=== PATIENT | female | born 2000 | race Caucasian/White ===

== ENCOUNTER 2024-03-13 07:32 | Inpatient (IN) ==
--- OUTSIDE RECORDS SUMMARY | 2024-03-13 08:23 | External Medical Summary | Summary of Care ---
Author Name Unknown Organization [facility] Address [address] [facility] [place] [address] Phone [phone] Care Team Providers Care Cctv Technician Name Role Phone Mile Montague MD Primary Care Provider [phone] Reason for Visit * Reason Comments Return Visit Encounter Details Date Type Department Care Team (Late st Contact Info) Description 02/24/2024 7:45 AM EDT Office Visit Gynecology/Obstetric s [facility] [address] [place] [address] Karla Samayoa PA-C [address] [place] [address] Supervision of normal first , antepartum*; Obesity affecting , antepartum, unspecified obesity type Allergies Active Allergy Reactions Criticality Noted Date Comments Wound Dressing Adhesive 01/06/2024 KT tape- burning/itching documented as of this encounter (statuses as of 02/24/2024) Medications Medication Sig Dispensed Refills Start Date End Date Status 27-0.8 MG Oral Tablet Take 1 Tablet by mouth daily at noon. Active documented as of this encounter (statuses as of 02/24/2024) Active Problems Problem Noted Date Diagnosed Date Migraines 09/09/2023 Supervision of normal first , antepartu m 08/12/2023 Obesity affecting 08/12/2023 Overview: Class 1 PCOS (polycystic ovarian syndrome) 08/12/2023 Overview: Early glucola Estimated Date of Delivery Comme nts Yes 03/10/2024 Based on last me nstrual period of 06/04/2023 documented as of this encounter (statuses as of 02/24/2024) Resolved Problems Problem Noted Date Diagnosed Date Resolved Date NO KNOWN PROBLEMS 08/31/2013 09/09/2023 documented as of this encounter (statuses as of 02/24/2024) Immunizations Name Administration Dates Next Due COVID-19 mRNA, LNP-s, No Pre serve, 2-Dose Series (Pfizer) 06/03/2021,05/13/2021 DTaP Dipth/Tet/Acell Pertussis (Infanrix), Peds 09/25/2003,08/31/2000,1999,09/28,1999 HIB Hep B - HIB Hepatitis B (Comvax) 1999, 1999 HIB PRP-T, 4 Dose, PF, IM (Hiberix) 08/31/2000,0 02/20/2000 HPV Vaccine, 4-Valent 09/12/2012,12/28/2011,03/23 Hepatitis B, 0-19 yrs 02/29/2000 IPV - Polio Virus Vaccine (Inact) 2003,05/30/2000,1999,07/22 MMR - Measles/Mumps/Rubella Vaccine 09/25/2003,1 Meningococcal Conjugate Vacc ine (Menactra/Menveo) 10/28/2010 Pneumococcal Conjugate Vacci ne, 7 Valent 11/29/2000,08/31/2000 Seasonal Influenza Intranasal 09/12/2012 Seasonal Influenza Vac, Quad , Cell Cult, PF, 6 Mos and Up, IM, (Flucelvax Quad) 11/04/2023,06/11/2022 Seasonal Influenza, Quadriva lent, No Preserve, IM 06/09/2021 TDAP (age 10 and older)(Boostrix) 12/23/2023 TDAP, Age 7 and older, IM (Adacel) 10/28/2010 Varicella Vaccine (Chicken Pox) 05/11/2006,05/30 documented as of this encounter Social History Tobacco Use Types Packs/Day Years Used Date Smoking Tobacco: Never Smokeless Tobacco: Never Alcohol Use Standard Drinks/Week Comments No 0 (1 standard drink = 0.6 oz pur e alcohol) PHQ-2 Answer Date Recorded PHQ Adult Total Score 0 12/09/2023 Hunger Vital Sign Answer Date Recorded Within the past 12 months, y ou worried that your food would run out before you got the money to buy more. Never true 10/14/19 24 Within the past 12 months, t he food you bought just didn't last and you didn't have money to get more. Never true 10/14/2023 [place] Depression Scale Answer Date Recorded [place] Depression Scale Total 1 02/17/2024 The thought of harming myself has occurred to me . Never 02/17/2024 Childcare Answer Date Recorded Do you feel overwhelmed with taking care of a child, family member or friend? No 10/14/2023 Does your family need help f inding childcare? (Household - for ages 0-17 years) Not on file 10/14/2023 Clothing Answer Date Recorded Have you been unable to get clothing when it was really needed? No 10/14/2023 Is your family able to get c lothes or diapers when needed? (Household - for ages 0-17 years) Not on file 10/14/2023 Personal Safety Answer Date Recorded Do you feel unsafe or have concerns for your saf ety? No 10/14/2023 Do you have concerns for you r family's safety? (Household - for ages 0-17 years) Not on file 10/14/2023 Utilities Answer Date Recorded Do you have trouble paying y our heating, water, or electric bill? No 10/14/2023 Is your family able to pay t he heat, water, or electric bill? (Household - for ages 0-17 years) Not on file 10/14/2023 Does your family have access to good internet? (Household - for ages 0-17 years) Not on file 10/14/2023 Employment Status Answer Date Recorded Are you unemployed or without regular income? No 10/14/2023 Does the household have a re gular source of income? (Household - for ages 0-17 years) Not on file 10/14/2023 Social Connections Answer Date Recorded How often do you feel lonely or isolated from th ose around you? Never 10/14/2023 Financial Resource Strain Answer Date R ecorded Do you have any trouble payi ng for your medications, or do you think you might in the future? No 10/14/2023 Does your family have troubl e paying for medicine? (Household - for ages 0-17 years) Not on file 10/14/2023 Transportation Needs Answer Date Record ed READ ONLY Do you have troubl e getting a ride to medical visits or work? Never True 10/14/2023 Does your family have a hard time getting a ride to doctors visits? (Household - for ages 0-17 years) Not on file 10/14/2023 Has lack of transportation k ept you from medical appointments, meetings, work, or from getting things needed for daily living? Check all that apply. (Adult - for ages 18 years and over) Not on file 10/14/2023 Do you (or your family) have trouble finding or paying for a ride (transportation)? (Household - for ages 0-17 years) Not on file 10/14/2023 Housing Stability Answer Date Recorded Do you currently live in a s helter or have no steady place to sleep at night? No 10/14/2023 READ ONLY Do you think you a re at risk of becoming homeless? No 10/14/2023 Does your family worry about paying for your home or becoming homeless? (Household - for ages 0-17 years) Not on file 0 10/14/2023 Are you homeless or worried that you might be in the future? (Adult - for ages 18 years and over) Not on file Are you (or your family) eli eless or worried that you might be in the future? (Household - for ages 0-17 years) Not on file Food Insecurity Answer Date Recorded Do you need food for this week? No 10/14/2023 Are you able to get enough f ood for your family? (Household - for ages 0-17 years) Not on file 10/14/2023 Does your family need food t his week? (Household - for ages 0-17 years) Not on file 10/14/2023 Do you always have enough fo od for your family? (Household - for ages 0-17 years) Not on file 10/14/2023 Estimated Date of Delivery Comme nts Yes 03/10/2024 Based on last me nstrual period of 06/04/2023 Sex and Gender Information Value Date Recorded Sex Assigned at Female 03/25/2023 10:55 PM EDT Gender Identity Female 03/25/2023 10:55 PM EDT Sexual Orientation Straight 03/25/2023 10 :55 PM EDT Job Start Date Occupation Industry Not on file Not on file Not on file documented as of this encounter Last Filed Vital Signs Vital Sign Reading Time Taken Comments Blood Pressure 122/78 02/24/2024 7:38 AM EDT Pulse - - Temperature - - Respiratory Rate - - Oxygen Saturation - - Inhaled Oxygen Concentration - - Weight 104.8 kg (231 lb) 02/24/2024 7:38 AM EDT Height - - Body Mass Index 40.92 02/17/2024 8:51 AM EDT documented in this encounter Progress Notes * Karla Samayoa PA-C - 02/24/2024 7:39 AM EDT 37w6d Doing well, denies LOF, VB, contractions. Baby is active. Would like to schedule postdate IOL. Mother in law is leaving for [place] on March 18, will be gone for 18 months. Hoping to be induced before then. Labor precautions. RTC in 1 week documented in this encounter Plan of Treatment Upcoming Encounters Date Type Department Care Team (Late st Contact Info) Description 03/02/2024 7:45 AM EDT Office Visit Gynecology/Obstetrics [facility] [address] [place] [address] Karla Samayoa PA-C [address] [place] [address] 03/09/2024 7:45 AM EDT Office Visit Gynecology/Obstetrics [facility] [address] [place] [address] Karla Samayoa PA-C [address] [place] [address] 12/31/2024 8:00 AM EDT Office Visit Family [facility] [address] [place] [address] Mile Montague MD [address] [place] [address] Health Maintenance Due Date Last Done Comments Pap Smear 2020 COVID-19 Vaccine ( season) 2023 06/03/2021, 05/13/2021 Influenza Vaccine (FLU shot) (#1) 2024 11/04/2023, 06/11/2022, 06/09/2021, Additional history exists Gonorrhea / Chlamydia Screen 08/12/2024 08/12/2023 Depression Screening 12/08/2024 12/09/2023 DTaP,Tdap,and Td Vaccines (8 - Td or Tdap) 12/22/2033 12/23/2023, 10/28/2010, 09/25/2003, Additional history exists Hepatitis B Vaccine Completed 02/29/2000, 1999, 1999 MENINGOCOCCAL (MENACTRA/MENVEO) Aged Out 10/28/2010 No longer eligible based on patient's age to complete this topic HPV (Gardasil) Vaccine Completed 3, 12/28/2011, 04/14/2011 Pneumococcal Vaccine: Pediatrics (0 to 5 Years) and At-Risk Patients (6 to 64 Years) Aged Out No longer eligible based on patient's age to complete this topic documented as of this encounter Medical Devices Not on filedocumented as of this encounter Visit Diagnoses Diagnosis Supervision of normal first , antepartum- Primary Obesity affecting , antepartum, unspecified obesity type documented in this encounter Care Teams Cctv Technician Relationship Specialty Start Date End Date Mile Montague MD [address] [place] [address] PCP - General Family Medicine 12/30/23 documented as of this encounter
--- OUTSIDE RECORDS SUMMARY | 2024-03-13 08:23 | External Medical Summary | Summary of Care ---
Author Name Unknown Organization [facility] Address [address] [facility] [place] [address] Phone [phone] Care Team Providers Care Eye Care Professional Name Role Phone Mile Montague MD Primary Care Provider [phone] Reason for Visit * Reason Comments Return Visit Encounter Details Date Type Department Care Team (Late st Contact Info) Description 02/24/2024 7:45 AM EDT Office Visit Gynecology/Obstetric s [facility] Chang [address] [place] [address] Karla Samayoa PA-C [address] [place] [address] Supervision of normal first , antepartum*; Obesity [...] money to get more. Never true 10/14/2023 [place] Depression Scale Answer Date Recorded [place] Depression Scale Total 1 02/17/2024 The thought [...] 03/02/2024 7:45 AM EDT Office Visit Gynecology/Obstetrics [facility] [address] [place] [address] Karla Samayoa PA-C [address] [place] [address] 03/09/2024 7:45 AM EDT Office Visit Gynecology/Obstetrics [facility] [address] [place] [address] Karla Samayoa PA-C [address] [place] [address] 12/31/2024 8:00 AM EDT Office Visit [facility] [address] [place] [address] Mile Montague MD [address] [place] [address] Health Maintenance Due Date Last Done Comments [...] type documented in this encounter Care Teams Eye Care Professional Relationship Specialty Start Date End Date Mile Montague MD [address] [place] [address] PCP - General Family Medicine 12/30/23 documented as of this encounter
--- OUTSIDE RECORDS SUMMARY | 2024-03-13 08:23 | External Medical Summary | Summary of Care ---
Author Name Unknown Organization [facility] Address [address] [facility] [place] [address] Phone [phone] Care Team Providers Care Grain Operator Name Role Phone Mile Montague MD Primary Care Provider [phone] Reason for Visit * Reason Comments Return Visit Encounter Details Date Type Department Care Team (Late st Contact Info) Description 03/09/2024 7:45 AM EDT Office Visit Gynecology/Obstetric s Sharda Chang [address] [place] [address] Karla Samayoa PA-C [address] [place] [address] Supervision of normal first , antepartum*; Obesity affecting in third trimester, unspecified obesity type Allergies Active Allergy Reactions Criticality Noted Date Comments Wound Dressing Adhesive 01/06/2024 KT tape- burning/itching documented as of this encounter (statuses as of 03/09/2024) Medications Medication Sig Dispensed Refills Start Date End Date Status 27-0.8 MG Oral Tablet Take 1 Tablet by mouth daily at noon. Active documented as of this encounter (statuses as of 03/09/2024) Active Problems Problem Noted Date Diagnosed Date Migraines 09/09/2023 Supervision of normal first , antepartu m 08/12/2023 Obesity affecting 08/12/2023 Overview: Class 1 PCOS (polycystic ovarian syndrome) 08/12/2023 Overview: Early glucola Estimated Date of Delivery Comme nts Yes 03/10/2024 Based on last me nstrual period of 06/04/2023 documented as of this encounter (statuses as of 03/09/2024) Resolved Problems Problem Noted Date Diagnosed Date Resolved Date NO KNOWN PROBLEMS 08/31/2013 09/09/2023 documented as of this encounter (statuses as of 03/09/2024) Immunizations Name Administration Dates Next Due COVID-19 mRNA, LNP-s, No Pre serve, 2-Dose Series (Pfizer) 06/03/2021,05/13/2021 DTaP Dipth/Tet/Acell Pertussis (Infanrix), Peds 09/25/2003,08/31/2000,1999,09/28,1999 HIB Hep B - HIB Hepatitis B (Comvax) 1999, 1999 HIB PRP-T, 4 Dose, PF, IM (H iberix, ActHib) 08/31/2000,02/20/2000 HPV Vaccine, 4-Valent 09/12/2012,12/28/2011,03/23 Hepatitis B, 0-19 [...] money to get more. Never true 10/14/2023 [place] Depression Scale Answer Date Recorded [place] Depression Scale Total 1 02/17/2024 The thought [...] Reading Time Taken Comments Blood Pressure 122/78 03/09/2024 7:41 AM EDT Pulse - - Temperature - - Respiratory Rate - - Oxygen Saturation - - Inhaled Oxygen Concentration - - Weight 104.8 kg (231 lb) 03/09/2024 7:41 AM EDT Height 160 cm (5' 3") 03/09/2024 7:41 AM EDT Body Mass Index 40.92 03/09/2024 7:41 AM EDT documented in this encounter Progress Notes * Karla Samayoa PA-C - 03/09/2024 8:24 AM EDT 39w6d Denies concerns. Would like cervical check. No VB, LOF, contractions. Baby is active. IOL scheduled 03/13/2024. Dial Polisher Documentation Provider requested executive pastry chef. Name of executive pastry chef: ALEXUS Crow RTC for visits Karla Samayoa PA-C * Aretha Lara LPN - 03/09/2024 7:41 AM EDT 39w6d Would like cervix checked documented in this encounter Plan of Treatment Upcoming Encounters Date Type Department Care Team (Late st Contact Info) Description 12/31/2024 8:00 AM EDT Office Visit Family Practice [facility] [place] [address] [place] [address] Mile Montague MD [address] [place] [address] Health Maintenance Due Date Last Done Comments Pap Smear 2020 COVID-19 Vaccine (3 - 2022- season) 2023 06/03/2021, 05/13/2021 Influenza Vaccine (FLU [...] normal first , antepartum- Primary Obesity affecting in third trimester, unspecified obesity type documented in this encounter Care Teams Grain Operator Relationship Specialty Start Date End Date Mile Montague MD [address] [place] [address] PCP - General Family Medicine 12/30/23 documented as of this encounter
--- OUTSIDE RECORDS SUMMARY | 2024-03-13 08:23 | External Medical Summary | Summary of Care ---
Author Name Unknown Organization [facility] Address [address] [facility] [place] [address] Phone [phone] Care Team Providers Care Buncher Machine Name Role Phone Mile Montague MD Primary Care Provider [phone] Reason for Visit * Reason Onset Date Comments Forms Request 02/21/2024 Encounter Details Date Type Department Care Team (Late st Contact Info) Description 02/21/2024 Telephone Gynecology/Obstetrics [facility] [address] [place] [address] Karla Samayoa PA-C [address] [place] [address] Forms Request Allergies Active Allergy Reactions Criticality Noted Date Comments Wound Dressing Adhesive 01/06/2024 KT tape- burning/itching documented as of this encounter (statuses as of 02/22/2024) Medications Medication Sig Dispensed Refills Start Date End Date Status 27-0.8 MG Oral Tablet Take 1 Tablet by mouth daily at noon. Active documented as of this encounter (statuses as of 02/22/2024) Active Problems Problem Noted Date Diagnosed Date Migraines 09/09/2023 Supervision of normal first , antepartu m 08/12/2023 Obesity affecting 08/12/2023 Overview: Class 1 PCOS (polycystic ovarian syndrome) 08/12/2023 Overview: Early glucola Estimated Date of Delivery Comme nts Yes 03/10/2024 Based on last me nstrual period of 06/04/2023 documented as of this encounter (statuses as of 02/22/2024) Resolved Problems Problem Noted Date Diagnosed Date Resolved Date NO KNOWN PROBLEMS 08/31/2013 09/09/2023 documented as of this encounter (statuses as of 02/22/2024) Immunizations Name Administration Dates Next Due COVID-19 [...] money to get more. Never true 10/14/2023 [place] Depression Scale Answer Date Recorded [place] Depression Scale Total 1 02/17/2024 The thought [...] on file documented as of this encounter Miscellaneous Notes * Telephone Encounter - Karla Samayoa PA-C - 02/22/2024 5:13 PM EDT Signed and placed back in triage to be faxed. * Telephone Encounter - Ebonie Jones LPN - 02/21/2024 8:54 AM EDT On Karla's desk for signature. * Telephone Encounter - Ebonie Jones LPN - 02/21/2024 8:40 AM EDT FMLA paperwork received. documented in this encounter Plan of Treatment Upcoming Encounters Date Type Department Care Team (Late st Contact Info) Description 02/24/2024 7:45 AM EDT Office Visit Gynecology/Obstetrics [facility] [address] [place] [address] Karla Samayoa PA-C [address] [place] [address] 03/02/2024 7:45 AM EDT Office Visit Gynecology/Obstetrics [facility] [address] [place] [address] Karla Samayoa PA-C [address] [place] [address] 03/09/2024 7:45 AM EDT Office Visit Gynecology/Obstetrics [facility] [address] [place] [address] Karla Samayoa PA-C [address] [place] [address] 12/31/2024 8:00 AM EDT Office Visit [facility] [employer] [address] [facility] [place] [address] Mile Montague MD [address] [facility] [place] [address] Health Maintenance Due Date Last Done Comments [...] Not on filedocumented as of this encounter Care Teams Buncher Machine Relationship Specialty Start Date End Date Mile Montague MD [address] [place] [address] PCP - General Family Medicine 12/30/23 documented as of this encounter
--- OUTSIDE RECORDS SUMMARY | 2024-03-13 08:23 | External Medical Summary | Summary of Care ---
Author Name Unknown Organization [facility] Address [address] [facility] [place] [address] Phone [phone] Care Team Providers Care Executive Director Name Role Phone Mile Montague MD Primary Care Provider [phone] Reason for Visit * Reason Comments Return Visit Encounter Details Date Type Department Care Team (Late st Contact Info) Description 03/02/2024 7:45 AM EDT Office Visit Gynecology/Obstetric s [facility] [address] [place] [address] Karla Samayoa PA-C [address] [place] [address] Supervision of normal first , antepartum*; Obesity affecting in third trimester, unspecified obesity type Allergies Active Allergy Reactions Criticality Noted Date Comments Wound Dressing Adhesive 01/06/2024 KT tape- burning/itching documented as of this encounter (statuses as of 03/02/2024) Medications Medication Sig Dispensed Refills Start Date End Date Status 27-0.8 MG Oral Tablet Take 1 Tablet by mouth daily at noon. Active documented as of this encounter (statuses as of 03/02/2024) Active Problems Problem Noted Date Diagnosed Date Migraines 09/09/2023 Supervision of normal first , antepartu m 08/12/2023 Obesity affecting 08/12/2023 Overview: Class 1 PCOS (polycystic ovarian syndrome) 08/12/2023 Overview: Early glucola Estimated Date of Delivery Comme nts Yes 03/10/2024 Based on last me nstrual period of 06/04/2023 documented as of this encounter (statuses as of 03/02/2024) Resolved Problems Problem Noted Date Diagnosed Date Resolved Date NO KNOWN PROBLEMS 08/31/2013 09/09/2023 documented as of this encounter (statuses as of 03/02/2024) Immunizations Name Administration Dates Next Due COVID-19 [...] money to get more. Never true 10/14/2023 [place] Depression Scale Answer Date Recorded [place] Depression Scale Total 1 02/17/2024 The thought [...] Sign Reading Time Taken Comments Blood Pressure 112/74 03/02/2024 7:33 AM EDT Pulse - - Temperature - - Respiratory Rate - - Oxygen Saturation - - Inhaled Oxygen Concentration - - Weight 104.9 kg (231 lb 3.2 oz) 03/02/2024 7:33 AM EDT Height 160 cm (5' 3") 03/02/2024 7:33 AM EDT Body Mass Index 40.96 03/02/2024 7:33 AM EDT documented in this encounter Progress Notes * Karla Samayoa PA-C - 03/02/2024 7:49 AM EDT 38w6d H/a today, pt states clinches jaw at night causing these. H/o migraines, has not tried tylenol. BP WNL. Denies LOF, VB, contractions. Baby is active. Leaning towards depot as bridge contraceptive with . Had NuvaRing in past and was happy with it. Planning to pump and feed. RTC in 1 week Karal Samayoa PA-C documented in this encounter Nursing Notes * Mignon Burgess RN - 03/02/2024 7:34 AM EDT Patient here for LES visit 38w6d No concerns + FM IOL instructions given Mignon Burgess RN documented in this encounter Plan of Treatment Upcoming Encounters Date Type Department Care Team (Late st Contact Info) Description 03/09/2024 7:45 AM EDT Office Visit Gynecology/Obstetrics [facility] [address] [place] [address] Karla Samayoa PA-C [address] [place] [address] 12/31/2024 8:00 AM EDT Office Visit Family Practice [facility] [place] [address] [place] [address] Mile Montague MD [address] [facility] [place] [address] Health Maintenance Due Date Last Done Comments Pap Smear 2020 COVID-19 Vaccine (2022- season) 2023 06/03/2021, 05/13/2021 Influenza Vaccine (FLU [...] type documented in this encounter Care Teams Executive Director Relationship Specialty Start Date End Date Mile Montague MD [address] [place] [address] PCP - General Family Medicine 12/30/23 documented as of this encounter
--- OUTSIDE RECORDS SUMMARY | 2024-03-13 08:24 | External Medical Summary | Summary of Care ---
Author Name Unknown Organization [facility] Address [address] [place] [address] Phone [phone] Care Team Providers Care Hide Measuring Machine Operator Name Role Phone Ruy Franco MD Primary Care Provider [phone] Reason for Visit * Reason Onset Date Comments Order Request 09/27/2023 Encounter Details Date Type Department Care Team (Late st Contact Info) Description 09/27/2023 Telephone Gynecology/Obstetrics [address] [place] [id number] Services, Scheduling [address] [place] [address] Order Request Allergies No known active allergiesdocumented as of this encounter (statuses as of 12/27/2023) Medications Medication Sig Dispensed Refills Start Date End Date Status 27-0.8 MG Oral Tablet Take 1 Tablet by mouth daily at noon. 0 Active documented as of this encounter (statuses as of 12/27/2023) Active Problems Problem Noted Date Diagnosed Date Migraines 09/09/2023 Supervision of normal first , antepartu m 08/12/2023 Obesity affecting 08/12/2023 Overview: Class 1 PCOS (polycystic ovarian syndrome) 08/12/2023 Overview: Early glucola Estimated Date of Delivery Comme nts Yes 03/10/2024 Based on last me nstrual period of 06/04/2023 documented as of this encounter (statuses as of 12/27/2023) Resolved Problems Problem Noted Date Diagnosed Date Resolved Date NO KNOWN PROBLEMS 08/31/2013 09/09/2023 documented as of this encounter (statuses as of 12/27/2023) Immunizations Name Administration Dates Next Due COVID-19 mRNA, LNP-s, No Pre serve, 2-Dose Series (Pfizer) 06/03/2021,05/13/2021 DTaP Dipth/Tet/Acell Pertussis (Infanrix), Peds 09/25/2003,08/31/2000,1999,09/28,1999 HIB Hep B - HIB Hepatitis B (Comvax) 1999, 1999 HIB PRP-T, 4 dose (ActHib) 08/31/2000,02/20/2000 HPV Vaccine, 4-Valent 09/12/2012,12/28/2011,03/23 Hepatitis B, 0-19 yrs 02/29/2000 IPV - Polio Virus Vaccine (Inact) 2003,05/30/2000,1999,07/22 MMR - Measles/Mumps/Rubella Vaccine 09/25/2003,1 Meningococcal Conjugate Vacc ine (Menactra/Menveo) 10/28/2010 Pneumococcal Conjugate Vacci ne, 7 Valent 11/29/2000,08/31/2000 Seasonal Influenza Intranasal 09/12/2012 Seasonal Influenza Vac, Quad , Cell Cult, PF, 6 Mos and Up, IM, (Flucelvax Quad) 06/11/2022 Seasonal Influenza, Quadriva lent, No Preserve, IM 06/09/2021 TDAP (age 11 and older)(Adacel) 10/28/2010 Varicella Vaccine (Chicken Pox) 05/11/2006,05/30 documented [...] money to get more. Never true 10/14/2023 [place] Depression Scale Answer Date Recorded [place] Depression Scale Total 4 12/09/2023 The thought of harming myself has occurred to me . Never 12/09/2023 Estimated Date of Delivery Comme nts Yes [...] encounter Miscellaneous Notes * Telephone Encounter - Rajat Teran OSA - 09/27/2023 1:00 PM EST Pt is requesting a prescription for a breast pump. She is ordering one offline and stated her insurance needs the prescription to acquire it. documented in this encounter Plan of Treatment Upcoming Encounters Date Type Department Care Team (Late st Contact Info) Description 12/30/2023 2:00 PM EDT Office Visit Family Practice [facility] [place] [address] [facility] [place] [address] Mile Montague MD [address] [facility] [place] [address] 01/06/2024 8:30 AM EDT Office Visit Gynecology/Obstetrics [facility] [address] [place] [address] Norma Tran CRNP [address] [place] [address] Health Maintenance Due Date Last Done Comments Pap Smear 2020 COVID-19 Vaccine ( season) 2023 06/03/2021, 05/13/2021 Gonorrhea / Chlamydia Screen 08/12/2024 08/12/2023 Depression Screening 12/08/2024 12/09/2023 DTaP,Tdap,and Td Vaccines (8 - Td or Tdap) 12/22/2033 12/23/2023, 10/28/2010, 09/25/2003, Additional history exists Hepatitis B Completed 02/29/2000, 02/2000, 1999 MENINGOCOCCAL (MENACTRA/MENVEO) Aged Out 10/28/2010 No longer eligible based on patient's age to complete this topic GARDASIL-HPV IMMUNIZATION SERIES Completed 09/12/2012, 12/28/2011, 04/14/2011 Influenza Vaccine (FLU shot) Completed , 06/11/2022, 06/09/2021, Additional history exists Pneumococcal Vaccine: Pediatrics (0 to 5 Years) and At-Risk Patients (6 to 64 Years) Aged Out No longer eligible based on patient's age to complete this topic documented as of this encounter Medical Devices Not on filedocumented as of this encounter Care Teams Hide Measuring Machine Operator Relationship Specialty Start Date End Date Ruy Franco MD [address] [place] [address] PCP - General Family Medicine 05/06/21 documented as of this encounter
--- OUTSIDE RECORDS SUMMARY | 2024-03-13 08:24 | External Medical Summary | Summary of Care ---
Author Name Unknown Organization [facility] Address [address] [facility] [place] [address] Phone [phone] Care Team Providers Care Health And Wellness Manager Name Role Phone Mile Montague MD Primary Care Provider [phone] Reason for Visit * Reason Onset Date Comments Forms Request 12/23/2023 Encounter Details Date Type Department Care Team (Late st Contact Info) Description 12/23/2023 Telephone Gynecology/Obstetrics [facility] [address] [place] [address] Norma Tran CRNP [address] [facility] [place] [address] Forms Request Allergies Active Allergy Reactions Criticality Noted Date Comments Wound Dressing Adhesive 01/06/2024 KT tape- burning/itching documented as of this encounter (statuses as of 01/06/2024) Medications Medication Sig Dispensed Refills Start Date End Date Status 27-0.8 MG Oral Tablet Take 1 Tablet by mouth daily at noon. 0 Active documented as of this encounter (statuses as of 01/06/2024) Active Problems Problem Noted Date Diagnosed Date Migraines 09/09/2023 Supervision of normal first , antepartu m 08/12/2023 Obesity affecting 08/12/2023 Overview: Class 1 PCOS (polycystic ovarian syndrome) 08/12/2023 Overview: Early glucola Estimated Date of Delivery Comme nts Yes 03/10/2024 Based on last me nstrual period of 06/04/2023 documented as of this encounter (statuses as of 01/06/2024) Resolved Problems Problem Noted Date Diagnosed Date Resolved Date NO KNOWN PROBLEMS 08/31/2013 09/09/2023 documented as of this encounter (statuses as of 01/06/2024) Immunizations Name Administration Dates Next Due COVID-19 [...] 06/09/2021 TDAP (age 10 and older)(Boostrix) 12/23/2023 TDAP (age 11 and older)(Adacel) 10/28/2010 Varicella [...] money to get more. Never true 10/14/2023 [place] Depression Scale Answer Date Recorded [place] Depression Scale Total 4 12/09/2023 The thought [...] encounter Miscellaneous Notes * Telephone Encounter - Mayra Sales RN - 01/06/2024 10:39 AM EDT Forms faxed. Copy placed in triage. * Telephone Encounter - Tayler Valle OSA - 12/30/2023 10:09 AM EDT Forms given to Bro Adame to sign. * Telephone Encounter - Mayra Sales RN - 12/23/2023 11:48 AM EDT Pt dropping off [place] paperwork . She would like this faxed and to order picker/assembler the hard copy at her nextvisit. Paperwork placed on Tayler's desk. documented in this encounter Plan of Treatment Upcoming Encounters Date Type Department Care Team (Late st Contact Info) Description 01/20/2024 8:45 AM EDT Office Visit Gynecology/Obstetrics [facility] Chang [address] [place] [address] Frantz Perez MD [address] [place] [address] 12/31/2024 8:00 AM EDT Office Visit Family Practice [facility] [employer] [address] [facility] [place] [address] Mile Montague MD 200 [facility] [place] [address] Health Maintenance Due Date Last Done Comments [...] filedocumented as of this encounter Care Teams Health And Wellness Manager Relationship Specialty Start Date End Date Mile Montague MD 200 [facility] [place] [address] PCP - General Family Medicine 12/30/23 documented as of this encounter
--- OUTSIDE RECORDS SUMMARY | 2024-03-13 08:24 | External Medical Summary | Summary of Care ---
Author Name Unknown Organization [facility] Address [address] [facility] [place] [address] Phone [phone] Care Team Providers Care Sales And Marketing Coordinator Name Role Phone Mile Montague MD Primary Care Provider [phone] Reason for Visit * Reason Comments Return Visit Encounter Details Date Type Department Care Team (Late st Contact Info) Description 02/17/2024 9:00 AM EDT Office Visit Gynecology/Obstetric s Sharda Chang [address] [place] [address] Karla Samayoa PA-C [address] [place] [address] Supervision of normal first , antepartum*; Obesity affecting in third trimester, unspecified obesity type Allergies Active Allergy Reactions Criticality Noted Date Comments Wound Dressing Adhesive 01/06/2024 KT tape- burning/itching documented as of this encounter (statuses as of 02/17/2024) Medications Medication Sig Dispensed Refills Start Date End Date Status 27-0.8 MG Oral Tablet Take 1 Tablet by mouth daily at noon. Active documented as of this encounter (statuses as of 02/17/2024) Active Problems Problem Noted Date Diagnosed Date Migraines 09/09/2023 Supervision of normal first , antepartu m 08/12/2023 Obesity affecting 08/12/2023 Overview: Class 1 PCOS (polycystic ovarian syndrome) 08/12/2023 Overview: Early glucola Estimated Date of Delivery Comme nts Yes 03/10/2024 Based on last me nstrual period of 06/04/2023 documented as of this encounter (statuses as of 02/17/2024) Resolved Problems Problem Noted Date Diagnosed Date Resolved Date NO KNOWN PROBLEMS 08/31/2013 09/09/2023 documented as of this encounter (statuses as of 02/17/2024) Immunizations Name Administration Dates Next Due COVID-19 [...] money to get more. Never true 10/14/2023 [place] Depression Scale Answer Date Recorded [place] Depression Scale Total 4 12/09/2023 The thought of harming myself has occurred to me . Never 12/09/2023 Childcare Answer Date Recorded Do you feel [...] Sign Reading Time Taken Comments Blood Pressure 128/72 02/17/2024 8:51 AM EDT Pulse - - Temperature - - Respiratory Rate - - Oxygen Saturation - - Inhaled Oxygen Concentration - - Weight 104.3 kg (230 lb) 02/17/2024 8:51 AM EDT Height 160 cm (5' 3") 02/17/2024 8:51 AM EDT Body Mass Index 40.74 02/17/2024 8:51 AM EDT documented in this encounter Progress Notes * Karla Samayoa PA-C - 02/17/2024 9:07 AM EDT 36w6d Doing well. Some increased swelling in BLE. Improved in AM, worse in evening. No warning s/sx. Discussed compressing stockings, elevation of legs. BP WNL. Had nosebleed 1 day last week, resolved quickly. Has not reoccurred. Due for GBS, collected. Denies LOF, VB, contractions. Baby is active. RTC in 1 week Karla Samayoa PA-C documented in this encounter Nursing Notes * Mignon Burgess RN - 02/17/2024 8:52 AM EDT Patient here for LES 36w6d + FM No contractions, leaking or bleeding GBS today Mignon Burgess, RN documented in this encounter Plan of Treatment Upcoming Encounters Date Type Department Care Team (Late st Contact Info) Description 02/24/2024 7:45 AM EDT Office Visit Gynecology/Obstetrics [facility] [address] [place] [address] Karla Samayoa PA-C [address] [place] [address] 03/02/2024 7:45 AM EDT Office Visit Gynecology/Obstetrics [facility] [address] [place] [address] Karla Samayoa PA-C [address] [place] [address] 03/09/2024 7:45 AM EDT Office Visit Gynecology/Obstetrics [facility] [address] [place] [address] Karla Samayoa PA-C [address] [place] [address] 12/31/2024 8:00 AM EDT Office Visit Family Practice [facility] 200 [facility] [place] [address] Mile Montague MD 200 [facility] [place] [address] Pending Results Name Type Priority Associated Diagnoses Date /Time GROUP B STREP CULTURE/PCR Lab Routine Supervision of normal first , antepartum 02/17/2024 9:24 AM EDT Scheduled Orders Name Type Priority Associated Diagnoses Orde r Schedule GROUP B STREP CULTURE/PCR Lab Routine Supervision of normal first , antepartum Expected: 02/17/2024, Expires: 02/16/2025 Health Maintenance Due Date Last Done Comments [...] type documented in this encounter Care Teams Sales And Marketing Coordinator Relationship Specialty Start Date End Date Mile Montague MD [address] [place] [address] PCP - General Family Medicine 12/30/23 documented as of this encounter
--- OUTSIDE RECORDS SUMMARY | 2024-03-13 08:24 | External Medical Summary | Summary of Care ---
Author Name Unknown Organization [facility] Address [address] [facility] [place] [address] Phone [phone] Care Team Providers Care Animal Shelter Worker Name Role Phone Ruy Franco MD Primary Care Provider [phone] Reason for Visit * Reason Comments Return Visit Encounter Details Date Type Department Care Team (Late st Contact Info) Description 12/09/2023 11:45 AM EDT Office Visit Gynecology/Obstetric s Sharda Chang [address] [place] [address] BackNorma trevizo CRNP [address] [place] [address] Supervision of normal first , antepartum*; Obesity affecting in second trimester, unspecified obesity type Allergies No known active allergiesdocumented as of this encounter (statuses as of 12/09/2023) Medications Medication Sig Dispensed Refills Start Date End Date Status 27-0.8 MG Oral Tablet Take 1 Tablet by mouth daily at noon. 0 Active documented as of this encounter (statuses as of 12/09/2023) Active Problems Problem Noted Date Diagnosed Date Migraines 09/09/2023 Supervision of normal first , antepartu m 08/12/2023 Obesity affecting 08/12/2023 Overview: Class 1 PCOS (polycystic ovarian syndrome) 08/12/2023 Overview: Early glucola Estimated Date of Delivery Comme nts Yes 03/10/2024 Based on last me nstrual period of 06/04/2023 documented as of this encounter (statuses as of 12/09/2023) Resolved Problems Problem Noted Date Diagnosed Date Resolved Date NO KNOWN PROBLEMS 08/31/2013 09/09/2023 documented as of this encounter (statuses as of 12/09/2023) Immunizations Name Administration Dates Next Due COVID-19 [...] money to get more. Never true 10/14/2023 [place] Depression Scale Answer Date Recorded [place] Depression Scale Total 4 12/09/2023 The thought [...] Sign Reading Time Taken Comments Blood Pressure 104/64 12/09/2023 11:36 AM EDT Pulse - - Temperature - - Respiratory Rate - - Oxygen Saturation - - Inhaled Oxygen Concentration - - Weight 95.3 kg (210 lb) 12/09/2023 11:36 AM EDT Height - - Body Mass Index 37.2 08/12/2023 1:25 PM EST documented in this encounter Progress Notes * Norma Tran CRNP - 12/09/2023 11:27 AM EDT 26w6d Doing well. Some periumbilical pain after being active all day - suggest belly band or K tape. Baby is active. No ctx, leaking/bleeding. Completing labs today. Will administer Tdap at next office visit. 2 week return KENN Mcnulty documented in this encounter Plan of Treatment Upcoming Encounters Date Type Department Care Team (Late st Contact Info) Description 12/23/2023 11:45 AM EDT Office Visit Gynecology/Obstetrics [facility] [address] [facility] [place] [address] Miguel Ángeler [place]N [place] [address] [place] [address] 01/11/2024 8:00 AM EDT Office Visit Family Practice [facility] [place] 200 [facility] [place] [address] Deepa Weinberg PA-C 200 [facility] [place] [address] Health Maintenance Due Date Last Done Comments Pap Smear 2020 DTaP,Tdap,and Td Vaccines (7 - Td or Tdap) 10/28/2020 10/28/2010, 09/25/2003, 08/31/2000, Additional history exists COVID-19 Vaccine ( season) 2023 06/03/2021, 05/13/2021 Gonorrhea / Chlamydia Screen 08/12/2024 08/12/2023 Depression Screening 12/08/2024 12/09/2023 Hepatitis B Completed 02/29/2000, 02/2000, 1999 MENINGOCOCCAL [...] first , antepartum- Primary Obesity affecting in second trimester, unspecified obesity type documented in this encounter Care Teams Animal Shelter Worker Relationship Specialty Start Date End Date Ruy Franco MD [address] [place] [address] PCP - General Family Medicine 05/06/21 documented as of this encounter
--- OUTSIDE RECORDS SUMMARY | 2024-03-13 08:24 | External Medical Summary | Summary of Care ---
Author Name Unknown Organization [facility] Address [address] [facility] [place] [address] Phone [phone] Care Team Providers Care Black Top Paver Operator Name Role Phone Mile Montague MD Primary Care Provider [phone] Reason for Visit * Reason Onset Date Comments Forms Request 02/21/2024 Encounter Details Date Type Department Care Team (Late st Contact Info) Description 02/21/2024 Telephone Gynecology/Obstetrics [facility] [address] [place] [address] Karla Samayoa PA-C [address] [place] [address] Forms Request Allergies Active Allergy Reactions Criticality Noted Date Comments Wound Dressing Adhesive 01/06/2024 KT tape- burning/itching documented as of this encounter (statuses as of 02/21/2024) Medications Medication Sig Dispensed Refills Start Date End Date Status 27-0.8 MG Oral Tablet Take 1 Tablet by mouth daily at noon. Active documented as of this encounter (statuses as of 02/21/2024) Active Problems Problem Noted Date Diagnosed Date Migraines 09/09/2023 Supervision of normal first , antepartu m 08/12/2023 Obesity affecting 08/12/2023 Overview: Class 1 PCOS (polycystic ovarian syndrome) 08/12/2023 Overview: Early glucola Estimated Date of Delivery Comme nts Yes 03/10/2024 Based on last me nstrual period of 06/04/2023 documented as of this encounter (statuses as of 02/21/2024) Resolved Problems Problem Noted Date Diagnosed Date Resolved Date NO KNOWN PROBLEMS 08/31/2013 09/09/2023 documented as of this encounter (statuses as of 02/21/2024) Immunizations Name Administration Dates Next Due COVID-19 [...] money to get more. Never true 10/14/2023 [place] Depression Scale Answer Date Recorded [place] Depression Scale Total 1 02/17/2024 The thought [...] encounter Miscellaneous Notes * Telephone Encounter - Ebonie Jones LPN - 02/21/2024 8:54 AM EDT On Karla's desk for signature. * Telephone Encounter - Ebonie Jones LPN - 02/21/2024 8:40 AM EDT FMLA paperwork received. documented in this encounter Plan of Treatment Upcoming Encounters Date Type Department Care Team (Late st Contact Info) Description 02/24/2024 7:45 AM EDT Office Visit Gynecology/Obstetrics [facility] [address] [place] [address] Karla Samayoa PA-C [address] [place] [address] 03/02/2024 7:45 AM EDT Office Visit Gynecology/Obstetrics [facility] [address] [place], [place] [address] Karla Samayoa PA-C [address] [place] [address] 03/09/2024 7:45 AM EDT Office Visit Gynecology/Obstetrics [facility] [address] [place], [place] [address] Karla Samayoa PA-C [address] [place] [address] 12/31/2024 8:00 AM EDT Office Visit [facility] [address] [place] [address] Mile Montague MD [address] [place] [address] Health Maintenance Due Date Last Done Comments Pap Smear 2020 COVID-19 Vaccine (3 season) 2023 06/03/2021, 05/13/2021 Influenza Vaccine (FLU [...] GARDASIL-HPV IMMUNIZATION SERIES Completed 09/12/2012, 12/28/2011, 04/14/2011 Pneumococcal Vaccine: Pediatrics (0 to 5 Years) and At-Risk Patients (6 to 64 Years) Aged Out No longer eligible based on patient's age to complete this topic documented as of this encounter Medical Devices Not on filedocumented as of this encounter Care Teams Black Top Paver Operator Relationship Specialty Start Date End Date Mile Montague MD [address] [place] [address] PCP - General Family Medicine 12/30/23 documented as of this encounter
--- OUTSIDE RECORDS SUMMARY | 2024-03-13 08:24 | External Medical Summary | Summary of Care ---
Author Name Unknown Organization [facility] Address [address] [facility] [place] [address] Phone [phone] Care Team Providers Care Raise Drill Operator Name Role Phone Mile Montague MD Primary Care Provider [phone] Reason for Visit * Reason Comments Return Visit Encounter Details Date Type Department Care Team (Late st Contact Info) Description 01/20/2024 8:45 AM EDT Office Visit Gynecology/Obstetric s Sharda Chang [address] [place] [address] Karla Samayoa PA-C [address] [place] [address] Encounter for supervision of normal first in third trimester*; Obesity affecting in third trimester, unspecified obesity type Allergies Active Allergy Reactions Criticality Noted Date Comments Wound Dressing Adhesive 01/06/2024 KT tape- burning/itching documented as of this encounter (statuses as of 01/20/2024) Medications Medication Sig Dispensed Refills Start Date End Date Status 27-0.8 MG Oral Tablet Take 1 Tablet by mouth daily at noon. Active documented as of this encounter (statuses as of 01/20/2024) Active Problems Problem Noted Date Diagnosed Date Migraines 09/09/2023 Supervision of normal first , antepartu m 08/12/2023 Obesity affecting 08/12/2023 Overview: Class 1 PCOS (polycystic ovarian syndrome) 08/12/2023 Overview: Early glucola Estimated Date of Delivery Comme nts Yes 03/10/2024 Based on last me nstrual period of 06/04/2023 documented as of this encounter (statuses as of 01/20/2024) Resolved Problems Problem Noted Date Diagnosed Date Resolved Date NO KNOWN PROBLEMS 08/31/2013 09/09/2023 documented as of this encounter (statuses as of 01/20/2024) Immunizations Name Administration Dates Next Due COVID-19 [...] money to get more. Never true 10/14/2023 [place] Depression Scale Answer Date Recorded [place] Depression Scale Total 4 12/09/2023 The thought [...] Sign Reading Time Taken Comments Blood Pressure 114/72 01/20/2024 8:38 AM EDT Pulse - - Temperature - - Respiratory Rate - - Oxygen Saturation - - Inhaled Oxygen Concentration - - Weight 102.1 kg (225 lb) 01/20/2024 8:38 AM EDT Height 160 cm (5' 3") 01/20/2024 8:38 AM EDT Body Mass Index 39.86 01/20/2024 8:38 AM EDT documented in this encounter Progress Notes * Karla Samayoa PA-C - 01/20/2024 9:04 AM EDT 32w6d Doing well. Denies LOF, VB, contractions. Baby is active. Reports increase in heartburn mostly at nightly. Currently taking TUMS, discussed Pepcid QHS. RTC in 2 weeks Karla Samayoa PA-C documented in this encounter Nursing Notes * Ebonie Jones LPN - 01/20/2024 8:51 AM EDT 32w6d Denies concerns documented in this encounter Plan of Treatment Upcoming Encounters Date Type Department Care Team (Late st Contact Info) Description 02/01/2024 3:00 PM EDT Office Visit Gynecology/Obstetrics [facility] [address] [place] [address] Ciara Negrete CRNP [address] [place] [address] 12/31/2024 8:00 AM EDT Office Visit Family Practice [facility] 200 [facility] [place] [address] Mile Montague MD 200 [facility] [place] [address] Health Maintenance Due Date Last Done Comments Pap Smear 2020 COVID-19 Vaccine (2022- season) 2023 06/03/2021, 05/13/2021 Gonorrhea / Chlamydia [...] as of this encounter Visit Diagnoses Diagnosis Encounter for supervision of normal first in third trimester- Primary Supervision of normal first Obesity affecting in third trimester, unspecified obesity type documented in this encounter Care Teams Raise Drill Operator Relationship Specialty Start Date End Date Mile Montague MD [address] [place] [address] PCP - General Family Medicine 12/30/23 documented as of this encounter
--- OUTSIDE RECORDS SUMMARY | 2024-03-13 08:24 | External Medical Summary ---
Author Name Unknown Address Unknown Organization [id number]:[place] [place] [facility] [address] [place] [address] Laboratory Report Ordering Provider Test Date Status YARELIS NESS 02/17/2024 09:24:11 Final Observation Date Value Abnormality Reference (Units ) Status Streptococcus agalactiae DNA [Presence] in Specimen by TIMA with probe detection 02/17/2024 09:24:11 Negative Negative Final No Group B Streptococcus det ected by culture-enhanced PCR (amplified probe). GBS GBSCT - [facility] 02/17/2024 09:24:11 0.0 Final GBS SPCCT - [facility] 02/17/2024 09:24:11 30.9 Final Performing Location [facility] [place] [address] [place] [address]
--- OUTSIDE RECORDS SUMMARY | 2024-03-13 08:24 | External Medical Summary ---
Author Name Unknown Address Unknown Organization [id number]:[facility]ORY [facility] [place] [address] [place] [address] Laboratory Report Ordering Provider Test Date Status CINTHYABACKJUANA 12/09/2023 12:12:04 Final Observation Date Value Abnormality Reference (Units ) Status WBC, Total 12/09/2023 12:12:04 12.04 Above high normal 4 .00-10.80 (K/uL) Final RBC 12/09/2023 12:12:04 4.02 3.85-5.15 (M/uL) Final Hemoglobin 12/09/2023 12:12:04 12.2 12.0-15.3 (g/dL) Final Anemia reflex testing trigge rs on a HGB < 12.0 for Females and HGB < 13.0 for Males in accordance with the WHO Anemia Guidelines
Anemia reflex testing triggers on a HGB < 12.0 for Females and HGB < 13.0 for Males in accordance with the WHO Anemia Guidelines HCT 12/09/2023 12:12:04 37.3 36.0-45.2 (%) Final MCV 12/09/2023 12:12:04 92.8 81.5-97.5 (fL) Final MCH 12/09/2023 12:12:04 30.3 27.0-34.0 (pg) Final MCHC 12/09/2023 12:12:04 32.7 32.0-36.0 (g/dL) Final RDW 12/09/2023 12:12:04 13.4 11.5-15.5 (%) Final Platelets 12/09/2023 12:12:04 223 140-400 (K /uL) Final MPV 12/09/2023 12:12:04 12.4 6.6-11.1 ( fL) Final Nucleated erythrocytes/100 leukocytes [Ratio] in Blood by Automated count 12/09/2023 12:12:04 0 <=0 (/100 WBCs) [facility] Performing Location LABORATORY [facility] - [address] [facility] [address]
--- OUTSIDE RECORDS SUMMARY | 2024-03-13 08:24 | External Medical Summary | Summary of Care ---
Author Name Unknown Organization [facility] Address [address] [facility] [place] [address] Phone [phone] Care Team Providers Care Carbon Coater Machine Operator Name Role Phone Ruy Franco MD Primary Care Provider [phone] Reason for Visit * Reason Comments Outpatient Testing Encounter Details Date Type Department Care Team (Late st Contact Info) Description 12/09/2023 11:00 AM EDT Laboratory Laboratory, [facility] [address] [facility] [id number] [facility] 132 [facility] [place] [address] Supervision of normal first , antepartum Allergies No known active allergiesdocumented as of [...] money to get more. Never true 10/14/2023 [place] Depression Scale Answer Date Recorded [place] Depression Scale Total 4 12/09/2023 The thought [...] on file documented as of this encounter Plan of Treatment Upcoming Encounters Date Type Department Care Team (Late st Contact Info) Description 12/23/2023 11:45 AM EDT Office Visit Gynecology/Obstetrics [facility] [address] [place] [address] BackNorma trevizo CRNP [address] [place] [address] 01/11/2024 8:00 AM EDT Office [facility] [address] [facility] [place] [address] Deepa Weinberg PA-C [address] [facility] [place] [address] Pending Results Name Type Priority Associated Diagnoses Date /Time 50-G GESTATIONAL GLUCOSE, 1 HOUR Lab Routine Supervision of normal first , antepartum 12/09/2023 12:12 PM EDT CBC WITH WBC DIFFERENTIAL AND ANEMIA REFLEX WORKUP Lab Routine Supervision of normal first , antepartum 12/09/2023 12:12 PM EDT SYPHILIS ANTIBODY SCREEN WITH REFLEX TO RPR Lab Routine Supervision of normal first , antepartum 12/09/2023 12:12 PM EDT ANEMIA CBC Lab Routine Supervision of normal first , antepartum 12/09/2023 12:12 PM EDT DIFFERENTIAL, AUTOMATED Lab Routine Supervision of normal first , antepartum 12/09/2023 12:12 PM EDT ANEMIA REFLEX CHEMISTRY HOLD Lab Routine Supervision of normal first , antepartum 12/09/2023 12:12 PM EDT SYPHILIS ANTIBODY SCREEN Lab Routine Supervision of normal first , antepartum 12/09/2023 12:12 PM EDT Health Maintenance Due Date Last Done Comments [...] Diagnoses Diagnosis Supervision of normal first , antepartum documented in this encounter Care Teams Carbon Coater Machine Operator Relationship Specialty Start Date End Date Ruy Franco MD [address] [place] [address] PCP - General Family Medicine 05/06/21 documented as of this encounter
--- OUTSIDE RECORDS SUMMARY | 2024-03-13 08:24 | External Medical Summary ---
Author Name Unknown Address Unknown Organization [id number]:LAB[facility]ATORY [facility] [place] - [address] [place] [address] Laboratory Report Ordering Provider Test Date Status CINTHYAGREY 12/09/2023 12:12:04 Final Observation Date Value Abnormality Reference (Units ) Status Treponema pallidum Ab [Presence] in Serum by Immunoassay 12/09/2023 12:12:04 Nonreactive Nonreactive Final No serologic evidence of syp hilis. No additional testing clinicially indicated at this time. Consider repeat testing in 2-4 weeks if acute or primary syphilis is suspected. Performing Location LABORATORY [facility] – [place] - [address] [place] [address]
--- OUTSIDE RECORDS SUMMARY | 2024-03-13 08:24 | External Medical Summary | Summary of Care ---
Author Name Unknown Organization [facility] Address [address] [place] [address] Phone [phone] Care Team Providers Care Call Center Director Name Role Phone Ruy Franco MD Primary Care Provider [phone] Reason for Visit * Reason Onset Date Comments Test Results 11/07/2023 Encounter Details Date Type Department Care Team (Late st Contact Info) Description 11/07/2023 Telephone Gynecology/Obstetrics [facility] [address] [employer] [place] [address] Rosenda Estrella, DNP, CN [address] [facility] [place] [address] Test Results Allergies No known active allergiesdocumented as of this encounter (statuses as of 11/08/2023) Medications Medication Sig Dispensed Refills Start Date End Date Status 27-0.8 MG Oral Tablet Take 1 Tablet by mouth daily at noon. 0 Active documented as of this encounter (statuses as of 11/08/2023) Active Problems Problem Noted Date Diagnosed Date Migraines 09/09/2023 Supervision of normal first , antepartu m 08/12/2023 Obesity affecting 08/12/2023 Overview: Class 1 PCOS (polycystic ovarian syndrome) 08/12/2023 Overview: Early glucola Estimated Date of Delivery Comme nts Yes 03/10/2024 Based on last me nstrual period of 06/04/2023 documented as of this encounter (statuses as of 11/08/2023) Resolved Problems Problem Noted Date Diagnosed Date Resolved Date NO KNOWN PROBLEMS 08/31/2013 09/09/2023 documented as of this encounter (statuses as of 11/08/2023) Immunizations Name Administration Dates Next Due COVID-19 [...] drink = 0.6 oz pur e alcohol) Hunger Vital Sign Answer Date Recorded Within the past 12 months, y ou worried that your food would run out before you got the money to buy more. Never true 10/14/19 24 Within the past 12 months, t he food you bought just didn't last and you didn't have money to get more. Never true 10/14/2023 [place] Depression Scale Answer Date Recorded [place] Depression Scale Total 0 08/12/2023 The thought of harming myself has occurred to me . Never 08/12/2023 Estimated Date of Delivery Comme nts Yes [...] Telephone Encounter - Mayra Sales RN - 11/08/2023 9:02 AM EDT left message for patient to call office * Telephone Encounter - Mignon Burgess RN - 11/07/2023 5:20 PM EDT ----- Message from Rosenda Estrella, CANDE, CNM sent at 11/04/2023 6:08 PM EDT ----- Please let pt know her anatomy US was normal. Thanks! IMPRESSION 1. Growth within normal limits utilizing SHERRILL from initial scan. 2. Anatomy well demonstrated, as above. Placenta posterior 3 vessel cord EFW 39th % documented in this encounter Plan of Treatment Upcoming Encounters Date Type Department Care Team (Late st Contact Info) Description 11/25/2023 1:45 PM EDT Office Visit Gynecology/Obstetrics Sharda Chang [address] [place] [address] Backer, KENN Cohn [address] [place] [address] Health Maintenance Due Date Last Done Comments Depression Screening 2011 Pap Smear 2020 DTaP,Tdap,and Td Vaccines (7 - Td or Tdap) 10/28/2020 10/28/2010, 09/25/2003, 08/31/2000, Additional history exists COVID-19 Vaccine (3 - 2022- season) 2023 06/03/2021, 05/13/2021 Gonorrhea / Chlamydia Screen 08/12/2024 08/12/2023 Hepatitis B Completed 02/29/2000, 02/2000, 1999 MENINGOCOCCAL [...] filedocumented as of this encounter Care Teams Call Center Director Relationship Specialty Start Date End Date Ruy Franco MD [address] [place] [address] PCP - General Family Medicine 05/06/21 documented as of this encounter
--- OUTSIDE RECORDS SUMMARY | 2024-03-13 08:24 | External Medical Summary ---
Author Name Unknown Address Unknown Organization [id number]:LABORATORY [facility] [place] [facility] - [address] [place] [address] Laboratory Report Ordering Provider Test Date Status GREY MENDES 12/09/2023 12:12:04 Final Observation Date Value Abnormality Reference (Units ) Status Glucose [Moles/volume] in Serum or Plasma --1 hour post 50 g glucose PO 12/09/2023 12:12:04 121 70-129 (mg/dL) Final Performing Location LABORATORY [facility] [place] 57[address] 0 - [address] [place] [address]
--- OUTSIDE RECORDS SUMMARY | 2024-03-13 08:24 | External Medical Summary | Summary of Care ---
Author Name Unknown Organization [facility] Address [address] [place] [address] Phone [phone] Care Team Providers Care Gambling Dealer Name Role Phone Ruy Franco MD Primary Care Provider [phone] Reason for Visit * Reason Onset Date Comments Test Results 11/07/2023 Encounter Details Date Type Department Care Team (Late st Contact Info) Description 11/07/2023 Telephone Gynecology/Obstetrics [facility] 132 [facility] [place] [address] Rosenda Estrella, DNP, CN [address] [place] [address] Test Results Allergies No known [...] money to get more. Never true 10/14/2023 [place] Depression Scale Answer Date Recorded [place] Depression Scale Total 0 08/12/2023 The thought [...] encounter Miscellaneous Notes * Telephone Encounter - Joyce Shepard LPN - 11/08/2023 9:18 AM EDT Pt aware * Telephone Encounter - Mayra Sales RN [...] Sharda Chang [address] [place] [address] BackerNorma CRNP [address] [place] [address] Health Maintenance Due Date Last Done Comments [...] filedocumented as of this encounter Care Teams Gambling Dealer Relationship Specialty Start Date End Date Ruy Franco MD [address] [facility] [place] [address] PCP - General Family Medicine 05/06/21 documented as of this encounter
--- OUTSIDE RECORDS SUMMARY | 2024-03-13 08:24 | External Medical Summary | Summary of Care ---
Author Name Unknown Organization [facility] Address [address] [facility] [place] [address] Phone [phone] Care Team Providers Care Sandwich Artist Name Role Phone Mile Montague MD Primary Care Provider [phone] Reason for Visit * Reason Comments Return Visit Encounter Details Date Type Department Care Team (Late st Contact Info) Description 01/06/2024 8:30 AM EDT Office Visit Gynecology/Obstetric s Sharda Chang [address] [place] [address] BackNorma trevizo CRNP [address] [place] [address] Supervision of normal first , antepartum*; Obesity [...] money to get more. Never true 10/14/2023 [place] Depression Scale Answer Date Recorded [place] Depression Scale Total 4 12/09/2023 The thought [...] Sign Reading Time Taken Comments Blood Pressure 104/60 01/06/2024 8:29 AM EDT Pulse - - Temperature - - Respiratory Rate - - Oxygen Saturation - - Inhaled Oxygen Concentration - - Weight 99.3 kg (219 lb) 01/06/2024 8:29 AM EDT Height - - Body Mass Index 38.79 08/12/2023 1:25 PM EST documented in this encounter Progress Notes * Norma Tran CRNP - 01/06/2024 8:37 AM EDT 30w6d Doing well, good movement. Discussed movement patterns and when to call with concerns. No bleeding, LOF. Has a breast pump. Reviewed normal 28 week labs. Discussed care from now until delivery. 2 week return KENN Mcnulty * Michelle Styles LPN - 01/06/2024 8:30 AM EDT 30w6d Denies vaginal bleeding/rom + movement Acid reflux No new concerns documented in this encounter Plan of Treatment Upcoming Encounters Date Type Department Care Team (Late st Contact Info) Description 01/20/2024 8:45 AM EDT Office Visit Gynecology/Obstetrics Sharda Chang [address] [place] [address] Frantz Perez MD [address] [place] [address] 12/31/2024 8:00 AM EDT Office Visit Family Practice [facility] [place] [address] [facility] [place] [address] Mile Montague MD 200 [facility] [place] [address] Health Maintenance Due Date Last Done Comments [...] type documented in this encounter Care Teams Sandwich Artist Relationship Specialty Start Date End Date Mile Montague MD [address] [place] [address] PCP - General Family Medicine 12/30/23 documented as of this encounter
--- OUTSIDE RECORDS SUMMARY | 2024-03-13 08:24 | External Medical Summary | Summary of Care ---
Author Name Unknown Organization [facility] Address [address] [facility] [place] [address] Phone [phone] Care Team Providers Care Hard Tile Setter Apprentice Name Role Phone Mile Montague MD Primary Care Provider [phone] Reason for Visit * Reason Comments Return Visit Encounter Details Date Type Department Care Team (Late st Contact Info) Description 02/17/2024 9:00 AM EDT Office Visit Gynecology/Obstetric s Sharda Chang [address] [place] [address] Karla Samayoa PA-C [address] [place] [address] Supervision of normal first , antepartum*; Obesity [...] money to get more. Never true 10/14/2023 [place] Depression Scale Answer Date Recorded [place] Depression Scale Total 4 12/09/2023 The thought [...] 02/24/2024 7:45 AM EDT Office Visit Gynecology/Obstetrics [facility] [address] [place] [address] Karla Samayoa PA-C [address] [place] [address] 03/02/2024 7:45 AM EDT Office Visit Gynecology/Obstetrics [facility] [address] [place] [address] Karla Samayoa PA-C [address] [place] [address] 03/09/2024 7:45 AM EDT Office Visit Gynecology/Obstetrics [facility] [address] [place] [address] Karla Samayoa PA-C [address] [place] [address] 12/31/2024 8:00 AM EDT Office Visit Family Practice [facility] 200 [facility] [place] [address] Mile Montague MD 200 [place] [address] Pending Results Name Type Priority Associated Diagnoses [...] type documented in this encounter Care Teams Hard Tile Setter Apprentice Relationship Specialty Start Date End Date Mile Montague MD [address] [place] [address] PCP - General Family Medicine 12/30/23 documented as of this encounter
--- OUTSIDE RECORDS SUMMARY | 2024-03-13 08:24 | External Medical Summary | Summary of Care ---
Author Name Unknown Organization [facility] Address [address] [facility] [place] [address] Phone [phone] Care Team Providers Care Supervisor Remelt Name Role Phone Mile Montague MD Primary Care Provider [phone] Reason for Visit * Reason Comments NEW PATIENT Encounter Details Date Type Department Care Team (Late st Contact Info) Description 12/30/2023 2:00 PM EDT Office Visit Family Practice [facility] [place] 200 [facility] [place] [address] Mile Montague MD [address] [place] [address] Encounter for medical examination to establish care*; Epidermoid cyst of skin of scalp Allergies No known active allergiesdocumented as of this encounter (statuses as of 12/30/2023) Medications Medication Sig Dispensed Refills Start Date End Date Status 27-0.8 MG Oral Tablet Take 1 Tablet by mouth daily at noon. 0 Active documented as of this encounter (statuses as of 12/30/2023) Active Problems Problem Noted Date Diagnosed Date Migraines 09/09/2023 Supervision of normal first , antepartu m 08/12/2023 Obesity affecting 08/12/2023 Overview: Class 1 PCOS (polycystic ovarian syndrome) 08/12/2023 Overview: Early glucola Estimated Date of Delivery Comme nts Yes 03/10/2024 Based on last me nstrual period of 06/04/2023 documented as of this encounter (statuses as of 12/30/2023) Resolved Problems Problem Noted Date Diagnosed Date Resolved Date NO KNOWN PROBLEMS 08/31/2013 09/09/2023 documented as of this encounter (statuses as of 12/30/2023) Immunizations Name Administration Dates Next Due COVID-19 [...] money to get more. Never true 10/14/2023 [place] Depression Scale Answer Date Recorded [place] Depression Scale Total 4 12/09/2023 The thought [...] Sign Reading Time Taken Comments Blood Pressure 108/60 12/30/2023 1:56 PM EDT Pulse 97 12/30/2023 1:56 PM EDT Temperature 36.6 C (97.8 F) 12/30/2023 1:56 PM ED T Respiratory Rate 16 12/30/2023 1:56 PM EDT Oxygen Saturation 98% 12/30/2023 1:56 PM EDT Inhaled Oxygen Concentration - - Weight 98.4 kg (217 lb) 12/30/2023 1:56 PM EDT Height - - Body Mass Index 38.44 08/12/2023 1:25 PM EST documented in this encounter Patient Instructions * Patient Instructions* Mile Montague MD - 12/30/2023 2:05 PM EDT A number of preventative measures can be taken to increase overall health and reduce risk of many types of cancer. These include: Avoidance of tobacco Being physically active with a goal of 150 to 300 minutes of moderate physical activity each week Eating a diet rich in fruits, vegetables, and whole grains and low in saturated/trans fat, red and processed meats, and highly processed foods and refined grain products Limiting alcohol consumption Protecting against sexually transmitted infections Avoidance of excess sun exposure, using sunscreen with SPF 30 or higher, and wearing sun protectiveclothing when appropriate documented in this encounter Progress Notes * Mile Montague MD - 12/30/2023 2:01 PM EDT Subjective Chief Complaint Patient presents with NEW PATIENT HPI: Anna Chiu is a 23 year old female. Patient is unaccompanied. The following issues were addressed today: Patient presents today to establish care. The patient's past medical history, surgical history, family history, social history, vaccination history, medications, and allergies were reviewed. , currently 30 weeks . Uncomplicated. Has PCOS. Took about a year to get . Used NuvaRing previously for contraception. Would like to have bump on top of head looked at. Has been there for years. Not painful or itchy, no bleeding or drainage. Review of Systems: See HPI Objective BP 108/60 | Pulse 97 | Temp 36.6 C (97.8 F) (Tympanic) | Resp 16 | Wt 98.4 kg (217 lb) | LMP 06/04/2023 | SpO2 98% | BMI 38.44 kg/m | BSA 2.09 m Wt Readings from Last 3 Encounters: 12/30/23 98.4 kg (217 lb) 12/23/23 97.4 kg (214 lb 12.8 oz) 12/09/23 95.3 kg (210 lb) BP Readings from Last 3 Encounters: 12/30/23 108/60 12/23/23 122/70 12/09/23 104/64 General: Well-appearing, no acute distress Head: Normocephalic and atraumatic Eyes: No conjunctival injection, no scleral icterus, extraocular movements are intact Ears: External ear unremarkable, canals normal and tympanic membranes clear bilaterally Throat/Mouth: Oral mucosa pink and moist, tongue normal in appearance without lesions and with symmetrical movement, pharynx normal in appearance Cardiovascular: Regular rate and rhythm, no murmur Respiratory: Good respiratory effort, breath sounds equal and clear to auscultation bilaterally Extremities: No edema Skin: Warm and dry, 5mm flesh-colored nodule on right top scalp, no induration, fluctuance, or erythema Neurological: Alert and oriented, no focal deficits noted Psychiatric: Appropriate mood and affect Assessment & Plan 1. Encounter for medical examination to establish care Age-appropriate health maintenance and screening recommendations were reviewed. The following recommendations were discussed and/or provided to patient in the after-visit summary: Avoidance of tobacco Being physically active with a goal of 150 to 300 minutes of moderate physical activity each week Eating a diet rich in fruits, vegetables, and whole grains and low in saturated/trans fat, red and processed meats, and highly processed foods and refined grain products Limiting alcohol consumption Protecting against sexually transmitted infections Avoidance of excess sun exposure, using sunscreen with SPF 30 or higher, and wearing sun protectiveclothing when appropriate 2. Epidermoid cyst of skin of scalp Asymptomatic. Discussed treatment of stable, uninfected cysts not necessary unless becoming bothersome. Follow-up if s/s of infection. Return in about 1 year (around 12/29/2024) for annual physical. This note was electronically signed by Mile Montague MD documented in this encounter Nursing Notes * Tammy Gordon LPN - 12/30/2023 1:52 PM EDT Anna Chiu presents as new patient to get established. Medications & HM reviewed/updated. Has a bump on the top of her doesn't see derm until July. documented in this encounter Plan of Treatment Upcoming Encounters Date Type Department Care Team (Late st Contact Info) Description 01/06/2024 8:30 AM EDT Office Visit Gynecology/Obstetrics Sharda Chang [address] [place] [address] Norma Tran CRNP [address] [place] [address] 12/31/2024 8:00 AM EDT Office Visit [facility] [place] [address] [place] [address] Mile Montague MD [address] [place] [address] Health Maintenance Due Date Last Done Comments [...] this encounter Visit Diagnoses Diagnosis Encounter for medical examination to establish care- Primary Epidermoid cyst of skin of scalp documented in this encounter Care Teams Supervisor Remelt Relationship Specialty Start Date End Date Mile Montague MD [address] [place] [address] PCP - General Family Medicine 12/30/23 documented as of this encounter"
--- OUTSIDE RECORDS SUMMARY | 2024-03-13 08:24 | External Medical Summary | Summary of Care ---
Author Name Unknown Organization [facility] Address [address] [facility] [place] [address] Phone [phone] Care Team Providers Care Personal Injury Legal Assistant Name Role Phone Ruy Franco MD Primary Care Provider [phone] Reason for Visit * Reason Comments Return Visit Encounter Details Date Type Department Care Team (Late st Contact Info) Description 11/25/2023 1:45 PM EDT Office Visit Gynecology/Obstetric s Sharda Chang [address] [place] [address] BackNorma trevizo CRNP [address] [place] [address] Supervision of normal first , antepartum*; Obesity affecting in second trimester, unspecified obesity type Allergies No known active allergiesdocumented as of this encounter (statuses as of 11/25/2023) Medications Medication Sig Dispensed Refills Start Date End Date Status 27-0.8 MG Oral Tablet Take 1 Tablet by mouth daily at noon. 0 Active documented as of this encounter (statuses as of 11/25/2023) Active Problems Problem Noted Date Diagnosed Date Migraines 09/09/2023 Supervision of normal first , antepartu m 08/12/2023 Obesity affecting 08/12/2023 Overview: Class 1 PCOS (polycystic ovarian syndrome) 08/12/2023 Overview: Early glucola Estimated Date of Delivery Comme nts Yes 03/10/2024 Based on last me nstrual period of 06/04/2023 documented as of this encounter (statuses as of 11/25/2023) Resolved Problems Problem Noted Date Diagnosed Date Resolved Date NO KNOWN PROBLEMS 08/31/2013 09/09/2023 documented as of this encounter (statuses as of 11/25/2023) Immunizations Name Administration Dates Next Due COVID-19 [...] money to get more. Never true 10/14/2023 [place] Depression Scale Answer Date Recorded [place] Depression Scale Total 0 08/12/2023 The thought [...] Sign Reading Time Taken Comments Blood Pressure 114/64 11/25/2023 1:47 PM EDT Pulse - - Temperature - - Respiratory Rate - - Oxygen Saturation - - Inhaled Oxygen Concentration - - Weight 93.9 kg (207 lb) 11/25/2023 1:47 PM EDT Height - - Body Mass Index 36.67 08/12/2023 1:25 PM EST documented in this encounter Progress Notes * Norma Tran CRNP - 11/25/2023 1:51 PM EDT 24w6d + movement. No pain or bleeding. Third trimester labs discussed and ordered for next visit. Discussed Tdap at 27+ weeks. 2 week return. KENN Mcnulty * Michelle Styles LPN - 11/25/2023 1:46 PM EDT 24w6d Denies vaginal bleeding/rom + movement documented in this encounter Plan of Treatment Upcoming Encounters Date Type Department Care Team (Late st Contact Info) Description 12/09/2023 11:00 AM EDT Laboratory [facility] [address] [place] [phone] Gianulca Chang Kelli [address] [place] [address] 12/09/2023 11:45 AM EDT Office Visit Gynecology/Obstetrics Sharda Chang [address] [place] [address] Backer, KENN Cohn [address] [place] [address] Scheduled Orders Name Type Priority Associated Diagnoses Orde r Schedule 50-G GESTATIONAL GLUCOSE, 1 HOUR Lab Routine Supervision of normal first , antepartum Expected: 12/09/2023 (Approximate), Expires: 11/24/2024 CBC WITH WBC DIFFERENTIAL AND ANEMIA REFLEX WORKUP Lab Routine Supervision of normal first , antepartum Expected: 12/09/2023 (Approximate), Expires: 11/24/2024 SYPHILIS ANTIBODY SCREEN WITH REFLEX TO RPR Lab Routine Supervision of normal first , antepartum Expected: 12/09/2023 (Approximate), Expires: 11/24/2024 Health Maintenance Due Date Last Done Comments [...] type documented in this encounter Care Teams Personal Injury Legal Assistant Relationship Specialty Start Date End Date Ruy Franco MD [address] [place] [address] PCP - General Family Medicine 05/06/21 documented as of this encounter
--- OUTSIDE RECORDS SUMMARY | 2024-03-13 08:24 | External Medical Summary | Summary of Care ---
Author Name Unknown Organization [facility] Address [address] [facility] [place] [address] Phone [phone] Care Team Providers Care Wheel Installer Name Role Phone Ruy Franco MD Primary Care Provider [phone] Reason for Visit * Reason Comments Return Visit Encounter Details Date Type Department Care Team (Late st Contact Info) Description 12/23/2023 11:45 AM EDT Office Visit Gynecology/Obstetric s Sharda Chang [address] [place] [address] BackNorma trevizo CRNP [address] [place] [address] Supervision of normal first , antepartum*; Obesity affecting in third trimester, unspecified obesity type; Need for prophylactic vaccination with combined jmuyoyjwxu-bxvuent-bz rtussis (DTP) vaccine Allergies No known active allergiesdocumented as of this encounter (statuses as of 12/23/2023) Medications Medication Sig Dispensed Refills Start Date End Date Status 27-0.8 MG Oral Tablet Take 1 Tablet by mouth daily at noon. 0 Active documented as of this encounter (statuses as of 12/23/2023) Active Problems Problem Noted Date Diagnosed Date Migraines 09/09/2023 Supervision of normal first , antepartu m 08/12/2023 Obesity affecting 08/12/2023 Overview: Class 1 PCOS (polycystic ovarian syndrome) 08/12/2023 Overview: Early glucola Estimated Date of Delivery Comme nts Yes 03/10/2024 Based on last me nstrual period of 06/04/2023 documented as of this encounter (statuses as of 12/23/2023) Resolved Problems Problem Noted Date Diagnosed Date Resolved Date NO KNOWN PROBLEMS 08/31/2013 09/09/2023 documented as of this encounter (statuses as of 12/23/2023) Immunizations Name Administration Dates Next Due COVID-19 [...] money to get more. Never true 10/14/2023 [place] Depression Scale Answer Date Recorded [place] Depression Scale Total 4 12/09/2023 The thought [...] Sign Reading Time Taken Comments Blood Pressure 122/70 12/23/2023 11:43 AM EDT Pulse - - Temperature - - Respiratory Rate - - Oxygen Saturation - - Inhaled Oxygen Concentration - - Weight 97.4 kg (214 lb 12.8 oz) 024 11:43 AM EDT Height - - Body Mass Index 38.05 08/12/2023 1:25 PM EST documented in this encounter Progress Notes * Norma Tran CRNP - 12/23/2023 11:46 AM EDT 28w6d +heartburn, nursing reviewed OTC remedies with pt. Normal 3rd trimester labs. Good movement; discussed [facility] and to call with any concerns, decreased FM. No ctx, bleeding, leaking. Accepts Tdap today. Encouraged childbirth and classes. Return in 2 weeks KENN Mcnulty * Mayra Sales RN - 12/23/2023 11:44 AM EDT Desires tdap documented in this encounter Plan of Treatment Upcoming Encounters Date Type Department Care Team (Late st Contact Info) Description 12/30/2023 2:00 PM EDT Office Visit [facility] [address] [place] [address] Mile Montague MD [address] [place] [address] 01/06/2024 8:30 AM EDT Office Visit Gynecology/Obstetrics [facility] [address] [place] [address] Norma Tran CRNP [address] [place] [address] Health Maintenance Due Date Last Done Comments [...] affecting in third trimester, unspecified obesity type Need for prophylactic vaccination with combined ewhmfidhpd-uqnixul-qsxrcrver (DTP) vaccine documented in this encounter Care Teams Wheel Installer Relationship Specialty Start Date End Date Ruy Franco MD [address] [place] [address] PCP - General Family Medicine 05/06/21 documented as of this encounter
--- OUTSIDE RECORDS SUMMARY | 2024-03-13 08:24 | External Medical Summary ---
Author Name Unknown Address Unknown Organization K01:[facility]ATORY [facility] - [address] [facility] [address] [place] [address] Laboratory Report Ordering Provider Test Date Status GREY MENDES 12/09/2023 12:12:04 Final Observation Date Value Abnormality Reference (Units ) Status SYNC LEUKOCYTES IN BLOOD BY AUTOMATED COUNT 12/09/2023 12:12:04 12.04 Above high normal 4.00-10.80 (K/uL) Final Segs 12/09/2023 12:12:04 78.4 Above high normal 40.0-75.0 (%) Final Lymphs % 12/09/2023 12:12:04 14.5 Below low normal 18.0-42.0 (%) Final Monos 12/09/2023 12:12:04 5.1 1.0-11.0 (%) Final Eosinophils 12/09/2023 12:12:04 0.8 0.0-6.0 (%) Final Basos 12/09/2023 12:12:04 0.2 0.0-2.0 (%) Final Immature Granulocyte, Percent 12/09/2023 12:12:04 1.0 0.0-2.0 (%) Final Absolute Segs 12/09/2023 12:12:04 9.43 Above high normal 1.80-7.70 (K/uL) Final Lymphs, absolute 12/09/2023 12:12:04 1.74 1.00-4.80 (K/ul) Final Monos, Abs 12/09/2023 12:12:04 0.62 0.00-1.10 (K/uL) Final Eos, Abs 12/09/2023 12:12:04 0.10 0.00-0.70 (K/uL) Final Basos, Abs 12/09/2023 12:12:04 0.03 0.00-0.20 (K/uL) Final Immature Granulocytes, Number 12/09/2023 12:12:04 0.12 0.00-0.20 (K/uL) Final Performing Location [facility] [address] [facility] [address]
--- OUTSIDE RECORDS SUMMARY | 2024-03-13 08:25 | External Medical Summary | Summary of Care ---
Author Name Unknown Organization [facility] Address [address] [facility] [place] [address] Phone [phone] Care Team Providers Care Scallop Binder Name Role Phone Ruy Franco MD Primary Care Provider [phone] Reason for Visit * Reason Comments Return Visit Encounter Details Date Type Department Care Team (Late st Contact Info) Description 10/28/2023 2:45 PM EST Office Visit Gynecology/Obstetric s Sharda Chang [address] [place] [address] Ciara Negrete CRNP [address] [place] [address] Supervision of normal first , antepartum*; Obesity affecting , antepartum, unspecified obesity type Allergies No known active allergiesdocumented as of this encounter (statuses as of 10/28/2023) Medications Medication Sig Dispensed Refills Start Date End Date Status 27-0.8 MG Oral Tablet Take 1 Tablet by mouth daily at noon. 0 Active documented as of this encounter (statuses as of 10/28/2023) Active Problems Problem Noted Date Diagnosed Date Migraines 09/09/2023 Supervision of normal first , antepartu m 08/12/2023 Obesity affecting 08/12/2023 Overview: Class 1 PCOS (polycystic ovarian syndrome) 08/12/2023 Overview: Early glucola Estimated Date of Delivery Comme nts Yes 03/10/2024 Based on last me nstrual period of 06/04/2023 documented as of this encounter (statuses as of 10/28/2023) Resolved Problems Problem Noted Date Diagnosed Date Resolved Date NO KNOWN PROBLEMS 08/31/2013 09/09/2023 documented as of this encounter (statuses as of 10/28/2023) Immunizations Name Administration Dates Next Due COVID-19 [...] money to get more. Never true 10/14/2023 [place] Depression Scale Answer Date Recorded [place] Depression Scale Total 0 08/12/2023 The thought [...] Sign Reading Time Taken Comments Blood Pressure 106/62 10/28/2023 1:25 PM EST Pulse - - Temperature - - Respiratory Rate - - Oxygen Saturation - - Inhaled Oxygen Concentration - - Weight 90.3 kg (199 lb) 10/28/2023 1:25 PM EST Height - - Body Mass Index 35.25 08/12/2023 1:25 PM EST documented in this encounter Progress Notes * Ciara Negrete CRNP - 10/28/2023 1:45 PM EST 20w6d Complaints: none Feeling well. +FM. No contractions, bleeding, or LOF. Anatomy u/s today, +cardiac activity. KENN Jordan * Michelle Styles LPN - 10/28/2023 1:27 PM EST 20w6d Denies vaginal bleeding/rom + movement Anatomy scan today No new concerns documented in this encounter Plan of Treatment Upcoming Encounters Date Type Department Care Team (Late st Contact Info) Description 11/25/2023 1:45 PM EDT Office Visit Gynecology/Obstetrics Sharda Chang [address] [place] [address] Miguel ÁngelerNorma CRNP [address] [place] [address] Health Maintenance Due Date Last Done Comments Depression Screening 2011 Pap Smear 2020 DTaP,Tdap,and Td Vaccines (7 - Td or Tdap) 10/28/2020 10/28/2010, 09/25/2003, 08/31/2000, Additional history exists COVID-19 Vaccine ( season) 2023 06/03/2021, 05/13/2021 Influenza Vaccine (FLU shot) (#1) 2023 06/11/2022, 06/09/2021, 09/12/2012 Gonorrhea / Chlamydia Screen 08/12/2024 08/12/2023 Hepatitis [...] type documented in this encounter Care Teams Scallop Binder Relationship Specialty Start Date End Date Ruy Franco MD [address] [place] [address] PCP - General Family Medicine 05/06/21 documented as of this encounter
--- OUTSIDE RECORDS SUMMARY | 2024-03-13 08:25 | External Medical Summary | Summary of Care ---
Author Name Unknown Organization [facility] Address [address] [place] [address] Phone [phone] Care Team Providers Care Distance Education Teacher Name Role Phone Ruy Franco MD Primary Care Provider [phone] Reason for Visit * Reason Comments Return Visit Encounter Details Date Type Department Care Team (Late st Contact Info) Description 10/07/2023 1:45 PM EST Office Visit Gynecology/Obstetric s [facility] [address] [facility] [place] [address] Rosenda Estrella, DNP, CN [address] [place] [address] Supervision of normal first , antepartum*; related conditions, unspecified, second trimester Allergies No known active allergiesdocumented as of this encounter (statuses as of 10/07/2023) Medications Medication Sig Dispensed Refills Start Date End Date Status 27-0.8 MG Oral Tablet Take 1 Tablet by mouth daily at noon. 0 Active documented as of this encounter (statuses as of 10/07/2023) Active Problems Problem Noted Date Diagnosed Date Migraines 09/09/2023 Supervision of normal first , antepartu m 08/12/2023 Obesity affecting 08/12/2023 Overview: Class 1 PCOS (polycystic ovarian syndrome) 08/12/2023 Overview: Early glucola Estimated Date of Delivery Comme nts Yes 03/10/2024 Based on last me nstrual period of 06/04/2023 documented as of this encounter (statuses as of 10/07/2023) Resolved Problems Problem Noted Date Diagnosed Date Resolved Date NO KNOWN PROBLEMS 08/31/2013 09/09/2023 documented as of this encounter (statuses as of 10/07/2023) Immunizations Name Administration Dates Next Due COVID-19 [...] the money to buy more. Never true 03/30/20 23 Within the past 12 months, t he food you bought just didn't last and you didn't have money to get more. Never true 03/30/2023 [place] Depression Scale Answer Date Recorded [place] Depression Scale Total 0 08/12/2023 The thought [...] Sign Reading Time Taken Comments Blood Pressure 110/64 10/07/2023 1:37 PM EST Pulse - - Temperature - - Respiratory Rate - - Oxygen Saturation - - Inhaled Oxygen Concentration - - Weight 88.9 kg (196 lb) 10/07/2023 1:37 PM EST Height - - Body Mass Index 34.72 08/12/2023 1:25 PM EST documented in this encounter Progress Notes * Rosenda Estrella, DNP, CNM - 10/07/2023 1:52 PM EST Anna Chiu is a 23 year old female here for her routine OB appointment at 17w6d Her Estimated Date of Delivery: 03/10/24 REVIEW OF SYSTEMS: No FM yet. Qnatal was low risk- female. Will check with insurance [facility] coverage. Denies vaginal bleeding, LOF, contractions, N/V, headaches PHYSICAL EXAM: Filed Vitals: 10/07/23 1337 BP: 110/64 Weight: 88.9 kg (196 lb) +FHT 160 ASSESSMENT/PLAN: (Z34.00) Supervision of normal first , antepartum (primary encounter diagnosis) Plan: US PREG SINGLE/1ST GEST, 14 WEEKS OR LATER (O99.210) Obesity affecting Plan: Passed early glucola (O26.92) related conditions, unspecified, second trimester Plan: US PREG SINGLE/1ST GEST, 14 WEEKS OR LATER Supervision of - anatomy u/s due at 20w - discussed MSAFP and role in detecting open neural tube defects. Patient will check with insuranceand send MYG if covered - Discussed at length the benefits of , pt considering- just concerned with her nipplepiercing - RTO in 4 weeks Rosenda Estrella DNP, KEVIN * Michelle Styles LPN - 10/07/2023 1:38 PM EST 17w6d Denies vaginal bleeding/rom Absent movement Going to verify coverage with insurance for MSAFP Noticing some lightheadedness documented in this encounter Plan of Treatment Upcoming Encounters Date Type Department Care Team (Late st Contact Info) Description 10/28/2023 12:45 PM EST Imaging Radiology [facility] 2nd [facility] [address] [facility] [place] [address] 10/28/2023 2:45 PM EST Office Visit Gynecology/Obstetrics [facility] [address] [facility] [place] [address] Ciara Negrete CRNP [address] [place] [address] Scheduled Orders Name Type Priority Associated Diagnoses Orde r Schedule US PREG SINGLE/1ST GEST, 14 WEEKS OR LATER Medical Imaging Routine Supervision of normal first , antepartum related conditions, unspecified, second trimester Expected: 10/28/2023 (Approximate), Expires: 11/04/2024 Health Maintenance Due Date Last Done Comments [...] Supervision of normal first , antepartum- Primary related conditions, unspecified, second trimester documented in this encounter Care Teams Distance Education Teacher Relationship Specialty Start Date End Date Ruy Franco MD [address] [place] [address] PCP - General Family Medicine 05/06/21 documented as of this encounter
--- OUTSIDE RECORDS SUMMARY | 2024-03-13 08:25 | External Medical Summary | Summary of Care ---
Author Name Unknown Organization [facility] Address [address] [facility] [place] [address] Phone [phone] Care Team Providers Care Intake Nurse Name Role Phone Ruy Franco MD Primary Care Provider [phone] Reason for Visit * Reason Comments Outpatient Testing Encounter Details Date Type Department Care Team (Late st Contact Info) Description 10/22/2023 9:10 AM EST Laboratory Laboratory, [facility] [address] [facility] [address] [place] [phone] [facility] [address] [place] [address] Arrived Allergies No known active allergiesdocumented as of this encounter (statuses as of 10/22/2023) Medications Medication Sig Dispensed Refills Start Date End Date Status 27-0.8 MG Oral Tablet Take 1 Tablet by mouth daily at noon. 0 Active documented as of this encounter (statuses as of 10/22/2023) Active Problems Problem Noted Date Diagnosed Date Migraines 09/09/2023 Supervision of normal first , antepartu m 08/12/2023 Obesity affecting 08/12/2023 Overview: Class 1 PCOS (polycystic ovarian syndrome) 08/12/2023 Overview: Early glucola Estimated Date of Delivery Comme nts Yes 03/10/2024 Based on last me nstrual period of 06/04/2023 documented as of this encounter (statuses as of 10/22/2023) Resolved Problems Problem Noted Date Diagnosed Date Resolved Date NO KNOWN PROBLEMS 08/31/2013 09/09/2023 documented as of this encounter (statuses as of 10/22/2023) Immunizations Name Administration Dates Next Due COVID-19 [...] money to get more. Never true 10/14/2023 [place] Depression Scale Answer Date Recorded [place] Depression Scale Total 0 08/12/2023 The thought [...] Description 10/28/2023 12:45 PM EST Imaging Radiology [facility] 2nd Floor, [place] [address] [place] [address] 10/28/2023 2:45 PM EST Office Visit Gynecology/Obstetrics [facility] [address] [place] [address] Ciara Negrete CRNP [address] [place] [address] Health Maintenance Due Date Last Done Comments [...] filedocumented as of this encounter Care Teams Intake Nurse Relationship Specialty Start Date End Date Ruy Franco MD [address] [place] [address] PCP - General Family Medicine 05/06/21 documented as of this encounter
--- OUTSIDE RECORDS SUMMARY | 2024-03-13 08:25 | External Medical Summary ---
Author Name Unknown Address Unknown Organization : Laboratory Report Ordering Provider Test Date Status BERNA GUADARRAMA 10/22/2023 09:09:46 Final Observation Date Value Abnormality Reference (Units ) Status INTERPRETATION 10/22/2023 09:09:46 SEE BELOW Final Screen negative for open NTD . RISK FOR ONTD 10/22/2023 09:09:46 1:693 Final CALC'D GESTATIONAL AGE 0310/22/2023 09:09:46 20 Final AFP, SERUM 10/22/2023 09:09:46 84.4 (ng/mL) Final AFP MOM 10/22/2023 09:09:46 1.71 Final Reference Range:
NTD <2 .50
IDD <1.90
TWINS <4.00
TWINS IDD <3.50
TRIPLETS <4.50
The AFP test result indicates that this patient is
screen negative for open NTD. It should be noted
that normal test results can never guarantee the
of a normal baby and that 2-3% of newborns
have some type of physical or mental defect, many
of which are undetectable through any known
diagnostic technique.
This is a screening test, not a diagnostic test.
This risk assessment report is based in part on
demographic data provided by the ordering
physician. Please notify the laboratory promptly
if any data are incorrect. For assistance with
recalculations, please call your local [facility] laboratory. For assistance with
interpretation of these results, please contact
your Local [facility] genetic counselor or
call [phone] ([phone]).
Interpretive Cutoffs
Screen Positive for Open NTD:
> or = 2.50 adjusted MOM
> or = 1.90 adjusted MOM for insulin-dependent diabetics
> or = 4.00 adjusted MOM for twins
> or = 3.50 adjusted MOM for twins insulin-dependent diabetics
> or = 4.50 adjusted MOM for triplets
For additional information, please refer to
[email or web address]
(This link is being provided for
informational/educational purposes only.) DATE OF 10/22/2023 09:09:46 1999 Final COLLECTION DATE 10/22/2023 09:09:46 10/22/2023 Final MATERNAL WEIGHT 10/22/2023 09:09:46 195 (lbs ) Final EST'D DATE OF DELIVERY 10/22/2023 09:09:46 03/10/2024 Final SHERRILL DETERMINED BY 10/22/2023 09:09:46 LMP Final MOTHER'S ETHNIC ORIGIN 10/22/2023 09:09:46 WHITE Final NUMBER OF FETUSES 10/22/2023 09:09:46 1 Final INSULIN DEPEND DIABETIC 10/22/2023 09:09:46 NO Final REPEAT SPECIMEN 10/22/2023 09:09:46 NO Final HX OF NEURAL TUBE DEFECTS 10/22/2023 09:09:46 NO Final PREV DOWN SYND 10/22/2023 09:09:46 NO Final DONOR EGG 10/22/2023 09:09:46 NO Final DONOR AGE: EGG RETRIEVAL 10/22/2023 09:09:46 NOT GIVEN Final Test performed by [facility]
[address] [facility],
[place] [address]

Plumbing Engineering Draftsperson: Vanessa Spaulding MD,PHD,DEEDEE
Test Reported by Eugene Shah,
[facility],
[address] [place], [place]
Ezequiel Santacruz M.D., Ph.D., Director of Laboratories
, [facility] [id number] Performing Location
--- OUTSIDE RECORDS SUMMARY | 2024-03-13 08:25 | External Medical Summary ---
Author Name Unknown Address Unknown Organization K01:[place] [place] [address] [place] [address] Laboratory Report Ordering Provider Test Date Status YARELIS NESS 10/22/2023 09:09:46 Final Observation Date Value Abnormality Reference (Units ) Status Insulin level 10/22/2023 09:09:46 22 3-25 ( uU/mL) Final The above reference interval is based on fasting status. Performing Location [facility] [place] [address] [place] [address]
--- OUTSIDE RECORDS SUMMARY | 2024-03-13 08:25 | External Medical Summary ---
Author Name Unknown Address Unknown Organization : Laboratory Report Ordering Provider Test Date Status ARSEN HERNANDEZ 11/04/2023 10:01:25 Final Observation Date Value Abnormality Reference (Units ) Status Mycobacterium tuberculosis stimulated gamma interferon [Interpretation] in Blood Qualitative 11/04/2023 10:01:25 NEGATIVE NEGATIVE Final Negative test result. M. tub erculosis complex
infection unlikely. Gamma interferon background [Units/volume] in Blood by Immunoassay 11/04/2023 10:01:25 0.02 (IU/mL) Final Mitogen stimulated gamma int erferon [Units/volume] corrected for background in Blood 11/04/2023 10:01:25 3.40 (IU/mL) Final Mycobacterium tuberculosis s timulated gamma interferon release by CD4+ T-cells [Units/volume] corrected for background in Blood 11/04/2023 10:01:25 0.00 (IU/mL) Final Mycobacterium tuberculosis s timulated gamma interferon release by CD4+ and CD8+ T-cells [Units/volume] corrected for background in Blood 11/04/2023 10:01:25 <0.00 (IU/mL) Final The Nil tube value reflects the background interferon
gamma immune response of the patient's blood sample.
This value has been subtracted from the patient's
displayed TB and Mitogen results.
Lower than expected results with the Mitogen tube
prevent false-negative Quantiferon readings by detect-
ing a patient with a potential immune suppressive
condition and/or suboptimal pre-analytical specimen
handling.
The TB1 Antigen tube is coated with the M.
tuberculosis-specific antigens designed to elicit
responses from TB antigen primed CD4+ helper
T-lymphocytes.
The TB2 Antigen tube is coated with the M.
tuberculosis-specific antigens designed to elicit
responses from TB antigen primed CD4+ helper and CD8+
cytotoxic T-lymphocytes.
For additional information, please refer to
[email or web address]
(This link is being provided for information/
educational purposes only.)

Test Performed at:
[facility]
[address]
[place] [address]
Ezequiel Santacruz M.D., Ph.D.,Director of Laboratories Performing Location
--- OUTSIDE RECORDS SUMMARY | 2024-03-13 08:25 | External Medical Summary | Summary of Care ---
Author Name Unknown Organization [facility] Address [address] [place] [address] Phone [phone] Care Team Providers Care Debt And Budget Counselor Name Role Phone Ruy Franco MD Primary Care Provider [phone] Reason for Visit * Reason Comments Outpatient Testing Encounter Details Date Type Department Care Team (Late st Contact Info) Description 11/04/2023 10:30 AM EDT Laboratory Laboratory, [facility] [address] [place] [id number] [facility], Lab [address] [place] [address] General medical exam Allergies No known active allergiesdocumented as of this encounter (statuses as of 11/04/2023) Medications Medication Sig Dispensed Refills Start Date End Date Status 27-0.8 MG Oral Tablet Take 1 Tablet by mouth daily at noon. 0 Active documented as of this encounter (statuses as of 11/04/2023) Active Problems Problem Noted Date Diagnosed Date Migraines 09/09/2023 Supervision of normal first , antepartu m 08/12/2023 Obesity affecting 08/12/2023 Overview: Class 1 PCOS (polycystic ovarian syndrome) 08/12/2023 Overview: Early glucola Estimated Date of Delivery Comme nts Yes 03/10/2024 Based on last me nstrual period of 06/04/2023 documented as of this encounter (statuses as of 11/04/2023) Resolved Problems Problem Noted Date Diagnosed Date Resolved Date NO KNOWN PROBLEMS 08/31/2013 09/09/2023 documented as of this encounter (statuses as of 11/04/2023) Immunizations Name Administration Dates Next Due COVID-19 [...] money to get more. Never true 10/14/2023 Dyer Depression Scale Answer Date Recorded Dyer Depression Scale Total 0 08/12/2023 The thought [...] 11/25/2023 1:45 PM EDT [facility] [address] [place] [address] BackerNorma CRNP [address] [place] [address] Pending Results Name Type Priority Associated Diagnoses Date /Time HEPATITIS B SURFACE ANTIBODY Lab Routine General medical exam 11/04/2023 10:01 AM EDT QUANTIFERON TB GOLD PLUS Lab Routine General medical exam 11/04/2023 10:01 AM EDT Health Maintenance Due Date Last Done [...] as of this encounter Visit Diagnoses Diagnosis General medical exam Unspecified general medical examination documented in this encounter Care Teams Debt And Budget Counselor Relationship Specialty Start Date End Date Ruy Franco MD [address] [place] [address] PCP - General Family Medicine 05/06/21 documented as of this encounter
--- OUTSIDE RECORDS SUMMARY | 2024-03-13 08:25 | External Medical Summary | Summary of Care ---
Author Name Unknown Organization [facility] Address [address] [place] [address] Phone [phone] Care Team Providers Care Pickle Cutter Name Role Phone Ruy Franco MD Primary Care Provider [phone] Encounter Details Date Type Department Care Team (Late st Contact Info) Description 11/07/2023 Telephone Gynecology/Obstetrics [facility] [address] [facility] [place] [address] Rosenda Estrella, DNP, CNM [address] [place] [address] Allergies No known active allergiesdocumented as of this encounter (statuses as of 11/07/2023) Medications Medication Sig Dispensed Refills Start Date End Date Status 27-0.8 MG Oral Tablet Take 1 Tablet by mouth daily at noon. 0 Active documented as of this encounter (statuses as of 11/07/2023) Active Problems Problem Noted Date Diagnosed Date Migraines 09/09/2023 Supervision of normal first , antepartu m 08/12/2023 Obesity affecting 08/12/2023 Overview: Class 1 PCOS (polycystic ovarian syndrome) 08/12/2023 Overview: Early glucola Estimated Date of Delivery Comme nts Yes 03/10/2024 Based on last me nstrual period of 06/04/2023 documented as of this encounter (statuses as of 11/07/2023) Resolved Problems Problem Noted Date Diagnosed Date Resolved Date NO KNOWN PROBLEMS 08/31/2013 09/09/2023 documented as of this encounter (statuses as of 11/07/2023) Immunizations Name Administration Dates Next Due COVID-19 [...] money to get more. Never true 10/14/2023 Caribou Depression Scale Answer Date Recorded Caribou Depression Scale Total 0 08/12/2023 The thought [...] encounter Miscellaneous Notes * Telephone Encounter - Mignon Burgess RN - 11/07/2023 5:20 PM EDT ----- Message from Rosenda Estrella DNP, KEVIN sent at 11/04/2023 6:08 PM EDT ----- [...] 11/25/2023 1:45 PM EDT Office Visit Gynecology/Obstetrics [facility] [address] [place] [address] [place], KENN Cohn [address] [place] [address] Health Maintenance Due Date Last Done Comments [...] filedocumented as of this encounter Care Teams Pickle Cutter Relationship Specialty Start Date End Date Ruy Franco MD [address] [place] [address] PCP - General Family Medicine 05/06/21 documented as of this encounter
--- OUTSIDE RECORDS SUMMARY | 2024-03-13 08:25 | External Medical Summary ---
Author Name Unknown Address Unknown Organization K01:[facility] [place] [address] [place] [address] Laboratory Report Ordering Provider Test Date Status ARSEN HERNANDEZ 11/04/2023 10:01:25 Final Observation Date Value Abnormality Reference (Units) Status Hepatitis B virus surface Ab [Units/volume] in Serum or Plasma by Immunoassay 11/04/2023 10:01:25 <3.5 (mIU/mL) Final Hepatitis B virus surface Ab [Presence] in Serum by Immunoassay 11/04/2023 10:01:25 Negative Final HEPATITIS B SURFACE ANTIBODY, INTERPRETATION 11/04/2023 10:01:25 NOT immune to Hepatitis B Virus Final POSITIVE: >=11.5 mIU/mL
INDETERMINATE: 8.5-<11.5 mIU/mL
NEGATIVE: <8.5 mIU/mL Performing Location [facility] [place] [address] [place] [address]
[2024-03-13] MEDS ORDERED: LIDOCAINE 1% LOCAL 20 ML VIAL INFIL PRN (08:41)
--- NOTE | 2024-03-13 08:41 | History & Physical Report ---
Date of Service March 13, 2024 Assessment & Plan (1) Encounter for induction of labor: Present on Admission?: Yes (2) Post term over 40 weeks: Plan: Admit to labor and Delivery Regular diet x 2 then NPO/IV Fluids labs Pitocin if needed to augment labor pain meds including epidural as the pt desires Present on Admission?: Yes Admission and Anticipated Discharge Date Admission Date: March 13, 2024 History of Present Illness Chief Complaint: induction of labor for postdates Primary Care Provider: Ramya Correia DO pt 23 yr old IUP at 40 weeks 4 days came in for induction of labor for post dates. pt denies regular uterine contractions, vaginal bleeding, leaking of fluid etc. reports good movement. GBS Negative Allergies Allergy/AdvReac Type Severity Reaction Status Date / Time adhesive tape Allergy Mild Rash Verified 03/13/24 07:55 Home Medications Medication Instructions Recorded Confirmed Type vits no.124-ferrous fum 1 tab PO DAILY 03/13/24 03/13/24 History 27 mg iron-folic acid 800 mcg tablet ( Vitamin) Patient History Medical History Obesity Migraines PCOS (polycystic ovarian syndrome) Surgical History H/O hand surgery Boxer's fracture right hand H/O adenoidectomy Hx of tonsillectomy Family History Other Breast cancer Cancer Liver cancer Lung cancer Ovarian cancer Denies family history of Prostate cancer Myocardial infarction Colorectal cancer Social History Smoking Status: Never smoker Second Hand Exposure: No; Do You Dip or Chew Tobacco: No; Hx Alcohol Use: No Hx Substance Use: No Preferred Language: Montserratian Communication Ability: Effective Visual Impairment: No Limitations Hearing Ability: Normal Integrity Assessor Required: No Beliefs That Will Affect Care: None marital status: marital status details: Guillermo Chiu Current Living Situation: Spouse current occupational status: employed current occupation: [employer] at [employer] How many Children do You have: 0 Other Information That Helps Us Care for You: No Feels Safe at Home: Yes Childhood Exposure to Second-Hand Smoke: Yes Diet: regular Diet Comment: regular caffeine: Yes (not often ) during the past year weight has: increased > 10 lbs Dental Care, Regularly: Yes Physical Activity Frequency: Other Physical Activity Frequency Comment: walking Seatbelt Use: always Sunscreen Use: Yes Assistive Devices: None Review of Systems All systems reviewed & are unremarkable except as noted in HPI & below as per Subjective / HPI as per Subjective / HPI as per Subjective / HPI as per Subjective / HPI as per Subjective / HPI as per Subjective / HPI Physical Exam Constitutional: WD/WN, vitals as above Respiratory: normal respiratory effort, lungs clear to auscultation Cardiovascular: RRR, no murmur, no edema Gastrointestinal (Abdomen): normal bowel sounds, soft, nontender, no hepatosplenomegaly Skin: no rashes, warm and dry Genitourinary: no vaginal lesions, no adnexal mass Speculum/Bimanual Exam: normal bimanual exam OB Exam Abdomen: + fundal height (39 cm), + heart tones (140s, Good variability, positive accelerations ), + vertex and + estimated weight (3200 gm) Manual OB Exam: + cervical dilation 3 cm, + cervical effacement 80% and + station -2 OB Exam Monitor Tracing: + external FHT monitor used, + external uterine monitor used, + category I and + normal FHT variability Results & Data Vital Signs (Past 12 Hours) Vital Signs Temp Pulse Resp BP 03/13/24 07:56 36.7 C 83 20 144/85 H 03/13/24 07:52 83 144/85 H
[2024-03-13 10:17] LABS: Hematocrit (blood only) 33.2 % (37.0-47.0); Mean Corpuscular Hemoglobin 28.7 pg (25.0-34.0); Mean Corpuscular Hgb Conc 33.1 g/dL (32.0-36.0); Mean Corpuscular Volume 86.7 fL (80.0-100.0); Mean Platelet Volume 13.1 fL (9.4-12.4); Platelet Count 151 K/uL (130-400); RDW Coefficient of Variation 14.2 % (11.5-14.5); RDW Standard Deviation 44.1 fL (36.4-46.3); Red Blood Count 3.83 M/uL (4.20-5.40); White Blood Count 10.29 K/ul (4.8-10.8)
[2024-03-13] MEDS: LACTATED RINGER'S 1,000 ML IV PRN (11:42)
[2024-03-13] MEDS: BUTORPHANOL TARTRATE 2 MG/ML VIAL IV ONE (11:42)
--- NOTE | 2024-03-13 13:52 | Anesthesiology Consultation ---
Date of Service March 13, 2024 Assessment & Plan Chart Review Chart Review: Acceptable Risk for Labor Epidural Consults Requested none ASA ASA2 Proposed Anesthesia Anesthesia Type: Labor Epidural Risk / Benefits Reviewed With: PT / POA / Parent / Guardian, Accepts Plan and Informed Consent Obtained History Height/Weight Height: 5 ft 3 in Weight: 104.78 kg Allergies Allergy/AdvReac Type Severity Reaction Status Date / Time adhesive tape Allergy Mild Rash Verified 03/13/24 07:55 Medications Home Medications Medication Instructions Recorded Confirmed Last Taken vits no.124-ferrous fum 1 tab PO DAILY 03/13/24 03/13/24 03/12/24 27 mg iron-folic acid 800 mcg tablet ( Vitamin) Active Medications Generic Name Dose Route Start Last Admin Trade Name Freq PRN Reason Stop Dose Admin Lactated Ringer's 1,000 mls @ 125 mls/hr 03/13/24 08:41 03/13/24 11:42 Lr IV 03/15/24 08:40 125 mls/hr .Q8H PRN Administration L&D Protocol Protocol Past Medical History Medical History Obesity Migraines PCOS (polycystic ovarian syndrome) Exercise / Class Metabolic Activity II 4-5 Yardwork/Stairs/Walk up hill Past Family History Family History Other Breast cancer Cancer Liver cancer Lung cancer Ovarian cancer Denies family history of Prostate cancer Myocardial infarction Colorectal cancer Past Surgical History Surgical History H/O hand surgery Boxer's fracture right hand H/O adenoidectomy Hx of tonsillectomy Past Anesthesia History No Hx of Anesthesia Complications and No Family Hx of Anesthesia Complications History of PONV No Hx of PONV and No Hx of Motion Sickness Social History Smoking Status: Never smoker Do You Dip or Chew Tobacco: No Hx Alcohol Use: No Hx Substance Use: No Physical Exam Vital Signs Last Vital Signs Temp 98.2 F 03/13/24 11:17 Pulse 88 03/13/24 11:17 Resp 20 03/13/24 13:00 BP 140/82 03/13/24 11:17 ENMT Mouth: no dentition abnormality Thyromental Distance: > or= 3.5 Finger Breadths Mallampati Class: II Neck normal visual inspection Respiratory normal respiratory effort Auscultation: lungs clear to auscultation bilaterally Cardiovascular Rate/Rhythm: regular rate and regular rhythm Testing Laboratory Results 03/13/24 08:52 Blood Type O Positive 03/13/24 08:50 Antibody Screen NEGATIVE 03/13/24 08:50
[2024-03-13] MEDS ORDERED: ROPIVACAINE 0.5% PF 5 MG/ML 20 ML VIAL EPI PRN (14:15)
[2024-03-13] MEDS ORDERED: NALOXONE HCL 0.4 MG/1 ML VIAL/CARP IV PRN (14:15)
[2024-03-13] MEDS ORDERED: BUPIVACAINE 0.25% PF 30 ML VIAL EPI PRN (14:15)
[2024-03-13] MEDS ORDERED: NALBUPHINE HCL 5 MG in SYRINGE 0 ML IV PRN (14:15)
[2024-03-13] MEDS ORDERED: fentaNYL citrate PF 100 MCG/2 ML VIAL EPI PRN (14:15)
[2024-03-13] MEDS ORDERED: SODIUM CHLORIDE 0.9% PF INJ 10 ML VIAL EPI PRN (14:15)
[2024-03-13] MEDS ORDERED: diphenhydrAMINE 50 MG/ML VIAL IV PRN (14:15)
[2024-03-13] MEDS ORDERED: ePHEDrine sulfate 50 MG/ML AMP IV PRN (14:15)
[2024-03-13] MEDS ORDERED: LIDOCAINE 2% MPF LOCAL 5 ML VIAL EPI PRN (14:15)
[2024-03-13] MEDS ORDERED: NALOXONE HCL 1 MG in SODIUM CHLORIDE 0.9% 1,000 ML IV PRN (14:15)
[2024-03-13] MEDS: fentANYL 2 MCG/ML BUPIVacaine 0.125%-NSS 100ML BAG ONE (14:18)
[2024-03-13] MEDS: LIDOCAINE 2%/EPINEPHRINE 1:200,000 20 ML PF ONE (14:18)
[2024-03-13] MEDS: BUPIVACAINE 0.25% PF 30 ML VIAL ONE (14:18)
[2024-03-13] MEDS: fentaNYL citrate PF 100 MCG/2 ML VIAL ONE (14:47)
[2024-03-13] MEDS: ePHEDrine sulfate 50 MG/ML AMP ONE (14:47)
[2024-03-13] MEDS: SODIUM CHLORIDE 0.9% PF INJ 10 ML VIAL ONE (14:48)
[2024-03-13] MEDS: ONDANSETRON INJ 2 MG/ML 2 ML VIAL IV PRN (18:01)
[2024-03-13] MEDS: fentaNYL citrate PF 100 MCG/2 ML VIAL EPI STA (18:02)
[2024-03-13] MEDS: BUPIVACAINE 0.25% PF 30 ML VIAL EPI STA (18:02)
[2024-03-13] MEDS: LIDOCAINE 2%/EPINEPHRINE 1:200,000 20 ML PF EPI STA (18:03)
[2024-03-13] MEDS: SODIUM CHLORIDE 0.9% PF INJ 10 ML VIAL EPI STA (18:03)
[2024-03-13] MEDS: fentANYL 2 MCG/ML BUPIVacaine 0.125%-NSS 100ML BAG EPI PRN (21:07)
[2024-03-13] MEDS: OXYTOCIN 30 UNITS/NSS 30 UNITS/500 ML BAG IV PRN (22:26)
--- NOTE | 2024-03-13 23:05 | Operative Report ---
Post Operative Report Pre & Post Diagnosis in labor , second degree vaginal laceration repair I identified the patient and participated in the time-out.: Yes Procedure [facility] Surgeon Richa Ryan MD Quality Control Systems Manager none Quantitative Blood Loss (QBL) 200 Findings Consistent with Post-Op Diagnosis Live viable female Specimens none Anesthesia Type Labor Epidural Complications none Description of Procedure pt fully dilated and pushing, placed in dorsal lithotomy position, prepped an draped in usual fashion, pt pushed for few minutes, delivered alive viable female infant in NATALEE position, placed the on the mothers abdomen, bulb suctioned nose and mouth, cord clamped and cut by the FOB. Thick meconium noted. placenta delivered spontaneously and complete. second degree vaginal laceration noted and repaired with 2.0 Vicryl in usual fashion. pt tolerated the procedure well. APGARS: 8, 9 at 1 and 5 min delivered at 10: 17 pm, placenta delivered at 10;26 pm I attest to the content of the Intraoperative Record and any orders documented therein. Any exceptions are noted below.
[2024-03-13] MEDS ORDERED: OXYTOCIN 30 UNITS/NSS 30 UNITS/500 ML BAG IV PRN (23:13)
[2024-03-13] MEDS ORDERED: bisacodyL 10 MG SUPP PR PRN (23:13)
[2024-03-13] MEDS ORDERED: DIPHTHER/TETAN/PERTUS Vaccine (Tdap, Adol/Adult) 0.5mL IM ONE (23:13)
[2024-03-13] MEDS ORDERED: ACETAMINOPHEN 325 MG TAB PO PRN (23:13)
[2024-03-13] MEDS ORDERED: HYDROCORTISONE ACETATE 25 MG SUPP PR PRN (23:13)
[2024-03-13] MEDS: IBUPROFEN 600 MG TAB PO PRN (23:18)
--- NOTE | 2024-03-13 23:26 | Anesthesia Procedure Note ---
Date of Service March 13, 2024 Anesthesia Post Epidural Note Vital Signs Vital Signs: Temp Pulse Resp BP Pulse Ox 98.2 F 90 18 126/74 97 03/13/24 21:07 03/13/24 23:19 03/13/24 23:19 03/13/24 23:19 03/13/24 22:15 Pain Intensity Lower Back: Pain Intensity: 0 Notes Mental Status: alert / awake / arousable and participated in evaluation Nausea / Vomiting: adequately controlled Pain: adequately controlled Airway Patency, RR, SpO2: stable & adequate BP & HR: stable & adequate Hydration State: stable & adequate Neuraxial Anesthesia: was administered and sensory block is resolving Anesthetic Complications: no major complications apparent and Pt Satisfied with anesthetic care Epidural: Removed without complications and With tip intact
[2024-03-14] MEDS: BENZOCAINE 20% SPRY 85 APPLN/85 GM CAN EXT PRN (01:32)
[2024-03-14 06:33] LABS: Hematocrit (blood only) 32.7 % (37.0-47.0); Hemoglobin 10.8 g/dl (12.0-16.0); Mean Corpuscular Volume 87.7 fL (80.0-100.0); Mean Platelet Volume 12.8 fL (9.4-12.4); Platelet Count 137 K/uL (130-400); RDW Coefficient of Variation 14.3 % (11.5-14.5); RDW Standard Deviation 45.1 fL (36.4-46.3); Red Blood Count 3.73 M/uL (4.20-5.40); White Blood Count 15.83 K/ul (4.8-10.8)
[2024-03-14] MEDS: PRENATAL VITAMIN 1 TAB PO SCH (08:50)
[2024-03-14] MEDS: DOCUSATE SODIUM 100 MG CAP PO SCH (08:50)
[2024-03-14] MEDS: FERROUS SULFATE 325 MG TAB PO SCH (08:50)
--- NOTE | 2024-03-14 08:57 | Obstetrical Progress Note ---
Date of Service March 14, 2024 Assessment & Plan Admission and Anticipated Discharge Date Admission Date: March 13, 2024 Subjective Patient is seen and examined. She feels well, no complaints. Ambulating without dizziness Voiding without difficulty Tolerating regular diet with out N&V Bleeding is minimal No fever/ chills/ CP/ SOB/ N&V/ Leg pain Bottle feeding without problems Vital Signs Temp Pulse Pulse Resp BP BP Pulse Ox 03/14/24 02:40 36.5 C 85 18 122/81 96 03/14/24 01:19 93 H 108/67 03/14/24 01:04 90 110/69 03/14/24 00:49 96 H 18 117/70 03/14/24 00:34 90 112/66 03/14/24 00:19 87 118/66 03/14/24 00:04 95 H 122/72 03/13/24 23:49 90 122/75 03/13/24 23:34 90 18 118/70 03/13/24 23:19 90 18 126/74 03/13/24 23:04 85 18 129/74 03/13/24 22:49 86 18 128/65 03/13/24 22:35 99 H 18 142/72 H 03/13/24 22:15 149 H 97 03/13/24 22:10 107 H 96 03/13/24 22:07 103 H 135/78 03/13/24 22:06 106 H 93 03/13/24 22:05 127 H 96 03/13/24 22:01 109 H 94 03/13/24 22:00 104 H 96 03/13/24 21:55 107 H 92 03/13/24 21:51 101 H 128/75 03/13/24 21:50 107 H 97 03/13/24 21:45 109 H 97 03/13/24 21:40 103 H 97 03/13/24 21:35 104 H 97 03/13/24 21:30 116 H 98 03/13/24 21:25 99 H 97 03/13/24 21:24 109 H 158/86 H 03/13/24 21:20 91 H 98 03/13/24 21:15 101 H 96 03/13/24 21:10 99 H 97 03/13/24 21:07 36.8 C 91 H 18 123/67 03/13/24 21:05 86 93 03/13/24 21:00 86 96 O2 Del Method 03/14/24 02:40 Room Air 03/14/24 01:19 03/14/24 01:04 03/14/24 00:49 03/14/24 00:34 03/14/24 00:19 03/14/24 00:04 03/13/24 23:49 03/13/24 23:34 03/13/24 23:19 03/13/24 23:04 03/13/24 22:49 03/13/24 22:35 03/13/24 22:15 03/13/24 22:10 03/13/24 22:07 03/13/24 22:06 03/13/24 22:05 03/13/24 22:01 03/13/24 22:00 03/13/24 21:55 03/13/24 21:51 03/13/24 21:50 03/13/24 21:45 03/13/24 21:40 03/13/24 21:35 03/13/24 21:30 03/13/24 21:25 03/13/24 21:24 03/13/24 21:20 03/13/24 21:15 03/13/24 21:10 03/13/24 21:07 03/13/24 21:05 03/13/24 21:00 Lab Results 03/13/24 03/13/24 03/14/24 Range/Units 08:50 08:52 06:02 WBC 10.29 15.83 H (4.8-10.8) K/ul RBC 3.83 L 3.73 L (4.20-5.40) M/uL Hgb 11.0 L 10.8 L (12.0-16.0) g/dl Hct 33.2 L 32.7 L (37.0-47.0) % MCV 86.7 87.7 (80.0-100.0) fL MCH 28.7 29.0 (25.0-34.0) pg MCHC 33.1 33.0 (32.0-36.0) g/dL RDW Std Deviation 44.1 45.1 (36.4-46.3) fL RDW Coeff of Milena 14.2 14.3 (11.5-14.5) % Plt Count 151 137 (130-400) K/uL MPV 13.1 H 12.8 H (9.4-12.4) fL Blood Type O Positive Antibody Screen NEGATIVE PE: General: Alert, orientedx3, NAD Abd: soft, NT, fundus firm, below Umbilicus Perineum intact, Lochia rubra minimal Ext; NT, no edema AP: 23 yo s/p , ppd# 1 VSS Afebrile doing well WBCC elevated, afebrile, repeat in am Continue routine care All questions were answered D/C home tomorrow Results & Data Vital Signs (Past 12 Hours) Vital Signs Temp Pulse Pulse Resp BP BP Pulse Ox 03/14/24 02:40 36.5 C 85 18 122/81 96 03/14/24 01:19 93 H 108/67 03/14/24 01:04 90 110/69 03/14/24 00:49 96 H 18 117/70 03/14/24 00:34 90 112/66 03/14/24 00:19 87 118/66 03/14/24 00:04 95 H 122/72 03/13/24 23:49 90 122/75 03/13/24 23:34 90 18 118/70 03/13/24 23:19 90 18 126/74 03/13/24 23:04 85 18 129/74 03/13/24 22:49 86 18 128/65 03/13/24 22:35 99 H 18 142/72 H 03/13/24 22:15 149 H 97 03/13/24 22:10 107 H 96 03/13/24 22:07 103 H 135/78 03/13/24 22:06 106 H 93 03/13/24 22:05 127 H 96 03/13/24 22:01 109 H 94 03/13/24 22:00 104 H 96 03/13/24 21:55 107 H 92 03/13/24 21:51 101 H 128/75 03/13/24 21:50 107 H 97 03/13/24 21:45 109 H 97 03/13/24 21:40 103 H 97 03/13/24 21:35 104 H 97 03/13/24 21:30 116 H 98 03/13/24 21:25 99 H 97 03/13/24 21:24 109 H 158/86 H 03/13/24 21:20 91 H 98 03/13/24 21:15 101 H 96 03/13/24 21:10 99 H 97 03/13/24 21:07 36.8 C 91 H 18 123/67 03/13/24 21:05 86 93 03/13/24 21:00 86 96 O2 Del Method 03/14/24 02:40 Room Air 03/14/24 01:19 03/14/24 01:04 03/14/24 00:49 03/14/24 00:34 03/14/24 00:19 03/14/24 00:04 03/13/24 23:49 03/13/24 23:34 03/13/24 23:19 03/13/24 23:04 03/13/24 22:49 03/13/24 22:35 03/13/24 22:15 03/13/24 22:10 03/13/24 22:07 03/13/24 22:06 03/13/24 22:05 03/13/24 22:01 03/13/24 22:00 03/13/24 21:55 03/13/24 21:51 03/13/24 21:50 03/13/24 21:45 03/13/24 21:40 03/13/24 21:35 03/13/24 21:30 03/13/24 21:25 03/13/24 21:24 03/13/24 21:20 03/13/24 21:15 03/13/24 21:10 03/13/24 21:07 03/13/24 21:05 03/13/24 21:00
[2024-03-14] MEDS: bisacodyL 5 MG TABEC PO SCH (20:49)
[2024-03-15 07:44] LABS: Basophils # (auto) 0.02 K/uL (0.00-0.20); Basophils % (auto) 0.2 %; Eosinophils # (auto) 0.08 K/uL (0.00-0.50); Eosinophils % (auto) 0.7 %; Hematocrit (blood only) 29.6 % (37.0-47.0); Hemoglobin 9.6 g/dl (12.0-16.0); Immature Granulocytes # (auto) 0.05 K/uL (0.01-0.20); Immature Granulocytes % (auto) 0.5 %; Lymphocytes % (auto) 15.4 %; Mean Corpuscular Hemoglobin 28.7 pg (25.0-34.0); Mean Corpuscular Hgb Conc 32.4 g/dL (32.0-36.0); Mean Corpuscular Volume 88.6 fL (80.0-100.0); Mean Platelet Volume 12.4 fL (9.4-12.4); Monocytes % (auto) 5.4 %; Neutrophils # (auto) 8.62 K/uL (1.40-6.50); Neutrophils % (auto) 77.8 %; Platelet Count 134 K/uL (130-400); RDW Coefficient of Variation 14.6 % (11.5-14.5); RDW Standard Deviation 46.8 fL (36.4-46.3); Red Blood Count 3.34 M/uL (4.20-5.40); White Blood Count 11.07 K/ul (4.8-10.8)
--- NOTE | 2024-03-15 11:05 | Obstetrical Progress Note ---
Date of Service March 15, 2024 Subjective Ambulation: ambulating normally Voiding: no voiding problems Passing Gas:: Yes Diet Tolerance:: regular diet Lochia:: Small Feeding Type:: breast feeding Current Pain Level(1-10): 0 doing well Physical Exam Constitutional WD/WN, vitals as above Gastrointestinal (Abdomen) Inspection/Auscultation: abdomen normal to inspection fundus firm below U. abdomen soft and non-tender Musculoskeletal Extremities: extremities normal to inspection Skin no rashes, warm and dry Neurologic patellar DTR's 2+ bilat, sensation intact Psychiatric A+Ox3, euthymic affect Results & Data Vital Signs (Past 12 Hours) Vital Signs Temp Pulse Resp BP Pulse Ox O2 Del Method 03/15/24 10:42 36.6 C 90 14 134/86 98 03/15/24 09:10 36.6 C 90 14 134/86 98 Room Air 03/15/24 00:05 36.6 C 102 H 16 133/88 Room Air Laboratory Results 03/13/24 03/13/24 03/14/24 08:50 08:52 06:02 WBC 10.29 15.83 H RBC 3.83 L 3.73 L Hgb 11.0 L 10.8 L Hct 33.2 L 32.7 L MCV 86.7 87.7 MCH 28.7 29.0 MCHC 33.1 33.0 RDW Std Deviation 44.1 45.1 RDW Coeff of Milena 14.2 14.3 Plt Count 151 137 MPV 13.1 H 12.8 H Immature Gran % (Auto) Neut % (Auto) Lymph % (Auto) [place] % (Auto) Eos % (Auto) Baso % (Auto) Neut # (Auto) Lymph # (Auto) [place] # (Auto) Eos # (Auto) Baso # (Auto) Immature Gran # (Auto) Blood Type O Positive Antibody Screen NEGATIVE 03/15/24 07:24 WBC 11.07 H RBC 3.34 L Hgb 9.6 L Hct 29.6 L MCV 88.6 MCH 28.7 MCHC 32.4 RDW Std Deviation 46.8 H RDW Coeff of Milena 14.6 H Plt Count 134 MPV 12.4 Immature Gran % (Auto) 0.5 Neut % (Auto) 77.8 Lymph % (Auto) 15.4 [place] % (Auto) 5.4 Eos % (Auto) 0.7 Baso % (Auto) 0.2 Neut # (Auto) 8.62 H Lymph # (Auto) 1.70 [place] # (Auto) 0.60 H Eos # (Auto) 0.08 Baso # (Auto) 0.02 Immature Gran # (Auto) 0.05 Blood Type Antibody Screen
== END 2024-03-15 12:44 | disposition home or self-care (01) | DRG 807 ==
LOC: 4S1 07:32 → 4E2 03-14 02:03
DX: O48.0 Post-term pregnancy; O70.1 Second degree perineal laceration during delivery; Z37.0 Single live birth; Z3A.40 40 weeks gestation of pregnancy